=== PATIENT | female | born 1945 ===

== ENCOUNTER 2023-06-14 16:18 | Emergency (ER) | payer OTHER ==
--- OUTSIDE RECORDS SUMMARY | 2023-06-14 16:25 | XMS REPORT | Continuity of Care Document ---
:1945 Author Organization [facility] t Address [address] [facility] [address] [place] [address] Care Team Providers Name Role Phone None, None Primary Care Physician Unavailable KATE BARKER Attending Clinician Unavailable JAREN WONG Attending Clinician Unavailable Venancio MEDELLIN, Jaren Espinoza Attending Clinician Doctor Unassigned, [place] Attending Clinician Unavailable Shwetha Yeh MD Attending Clinician Mildred Rubio MA Attending Clinician Unavailable Chava Chapman Attending Clinician Jocelyn Randle MD Attending Clinician Provider, Unknown Attending Clinician Unavailable Jimmy MEDELLIN, Lynn Christianson Attending Clinician Cassidy Cote Attending Clinician Lupe Kay MA Attending Clinician Unavailable Aiyana Busch APRN Attending Clinician Nora Woods MD Attending Clinician KARINA Attending Clinician Unavailable Gladys Huntley Attending Clinician [phone] Farrah Carter MD Attending Clinician FARRAH CARTER Attending Clinician Unavailable NICCI Attending Clinician Unavailable Yaz Hi Attending Clinician [phone] Marco A Hernandez MD Attending Clinician MARCO A HERNANDEZ Attending Clinician Unavailable AIYANA BUSCH NP Attending Clinician Unavailable JAREN WONG Admitting Clinician Unavailable Jaren Wong MD Admitting Clinician JOCELYN RANDLE Admitting Clinician Unavailable MD SHWETHA YEH Admitting Clinician Unavailable WATERS_S Admitting Clinician Unavailable SCHAUBROECK_L Admitting Clinician Unavailable Payers Payer Name Policy Type Policy Number Effective Date Expiration Date Yumiko carlisle [employer] OPEN CHOICE [id number] 2021 PPO 00:00:00 [employer]ETNA MANAGED [id number] 2021 MEDICARE PPO-CYRUS 00:00:00 [employer]ET[employer] (MEDICARE [id number] 2021 REPLACEMENT PPO) 00:00:00 Problems Condition Condition Condition Status Onset Resolution Last Treating Co mments Source Name Details Category Date Date Treatment Clinician Date Lumbar Lumbar Disease Active Overview: Method i radiculopa radiculopa 3-[address] thy thy 00:00: g of this [facility] 00 note l might be different from the original. Added automatic ally from request for surgery [id number] Gastroesop Gastroesop Problem Active 2020-10 S [facility] hageal hageal 0-29 Communi reflux Reflux 00:00: ty disease Disease 00 Hospita Clinics Osteopenia Osteopenia Problem Active S [facility] 5-14 Communi 00:00: ty 00 [facility] Hyperlipid Hyperlipid Problem Active S [facility] emia emia 4-15 Communi 00:00: ty 00 Hospita Clinics Hypothyroi Hypothyroi Problem Active S [facility] dism dism 4-08 Communi 00:00: ty [facility] Insomnia Insomnia Problem Active [place] 4-08 Communi 00:00: ty 00 Hospita Clinics Asthma Asthma Problem Active [place] 4-08 Communi 00:00: ty 00 Hospita Clinics 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 History of History of Problem Resolve UT arthritis arthritis d Phys ici ans History of History of Problem Resolve UT asthma asthma d Physici ans History of History of Problem Resolve UT Exposure Exposure d Physic i of of ans implanted implanted vaginal vaginal mesh and mesh and other other prosthetic prosthetic materials materials into into vagina vagina History of History of Problem Resolve UT Mechanical Mechanical d Ph ysici complicati complicati an s on of on of genitourin genitourin rafa rafa device, device, implant implant and graft and graft History of History of Problem Resolve UT pneumonia pneumonia d Phys ici ans History of History of Problem Resolve UT Straining Straining d Phys ici on on ans urination urination Allergies, Adverse Reactions, Alerts Allergy Allergy Status Severity Reaction(s) Onset Inactive Treating Comm ents Source Name Type Date Date Clinician ASPIRIN DRUG Active Med Other-Cmnt Unive rs INGREDI 05-08 ity of 00:00: [address] Aspirin Drug Active Other - See Severe Univ ers Intolera comments 05-08 stomach ity o f nce 00:00: pain [address] Aspirin Propensi Active GI Methodi ty to Intolerance 04-17 st adverse 00:00: Hospita reaction 00 l s to drug Ibandron Allergy Active Other UT ic Acid to 2-17 reaction( Health substanc 00:00: s): e 00 Muscle Cramps Ibandron Propensi Active Other (See BONIVA Me thodi ic Acid ty to Comments) 2-[address] adverse 00:00: reaction( Hospit a reaction 00 s): l s to Muscle drug Cramps Aspirin Allergy Active Nausea Only Other UT to 5-05 reaction( Health substanc 00:00: s): e 00 Abdominal Pain, Vomiting ASPIRIN Allergy Active [place] to 5-05 Communi substanc 00:00: ty e 00 Hospita l Clinics NO KNOWN Drug Active Univers ALLERGIE Class ity of S [facility] Aspirin Allergy Active Severe, Abdominal Swee ny to Severe, pain, Communi substanc Severe Nausea, ty e Vomiting Hospita l Clinics IBANDRON Allergy Active Muscle [place] ATE to cramps Communi SODIUM substanc ty e Hospita l Clinics Family History Family Member Diagnosis Comments Start Date Stop Date Source Sister Family history of [facility] Phys icians Diabetes Sister Family history of [facility] Phys icians Renal failure Natural brother Blood Clots [facility] Social History Social Habit Start Date Stop Date Quantity Comments Source Exposure to Not sure [place] [facility] SARS-CoV-2 (event) History of tobacco Current smoker [facility] identity [facility] Sexual orientation [facility] Tobacco use and 2023-05-08 2023-05-08 Smokeless Universit y of exposure 00:00:00 00:00:00 tobacco non-user [facility] dical [place] Alcohol intake 2023-03-28 2023-03-28 Lifetime [facility] 00:00:00 00:00:00 non-drinker Hospital (finding) History of Social 2023-03-28 2023-03-[address] function 00:00:00 00:00:00 Hospital Cigarettes smoked 2023-01-02 2023-01-[address] current (pack per 00:00:00 00:00:00 Hospita l day) - Reported Cigarette 2023-01-02 2023-01-02 [facility] pack-years 00:00:00 00:00:00 Hospital Sex Ass[birth year] At [birth year] [facility] 00:00:00 00:00:00 Hospital Smoking Status Start Date Stop Date Source Tobacco smoking [place] [facility] consumption unknown Never smoked tobacco [facility] Ex-smoker 2023-01-02 00:00:00 2023-01-02 [facility]ital 00:00:00 Medications Ordered Filled Start Stop Current Ordering Indication Dosage Frequency Signature Comments Components Source Medication Medication Date Date Medication? Clinician (SIG) Name Name neomycin-po 2022- No PRN, Unive rs lymyxin-dex 05-15 Starting ity of amethasone 18:23: 18[place]29 [place] (MAXITROL[place] 00 :06 05/15/23 at Medi kieran 3.5 1323, Branch mg/g-10,000 Until Sat unit/g-0.1 05/15/23 at % 1329, ophthalmic Routine, ointment Intra-op sodium 2022- No PRN, Univers chloride 05-15 Starting ity of (NS) 18:21: 18:29 on Sat [place] injection 00 :06 05/15/23 at Medic al 1321, Branch Until Sat05/15/23 at 1329, Routine, Intra-op dexamethaso 2022- No PRN, Unive rs ne 05-15 Starting ity of (DECADRON 18:21: 18:29 on Wed [place] PHOSPHATE) 00 :06 05/15/23 at [facility] injection 1321, Branch Until Sat05/15/23 at 1329, Routine, Intra-op ceFAZolin 2022- No PRN, Univers (ANCEF) 05-15 Starting ity of injection 18:21: 18:29 on Wed [place] 00 :06 05/15/23 at Medical 1321, Branch Until Sat05/15/23 at 1329, RAFAEL, Intra-op carbachoL 2022- No PRN, Univers (MIOSTAT) 05-15 Starting ity o f 0.01 % 18:20: 18:29 on Sat [place] intraocular 00 :06 05/15/23 at Med ical injection 1320, Branch Until Sat05/15/23 at 1329, Routine, Intra-op EPINEPHrine 2022- No PRN, Unive rs 1:1,000 (1 05-15 Starting ity of mg/mL) 18:02: 18:29 on Wed [place] (ADRENALIN) 00 :06 05/15/23 at Med ical injection 1302, Branch Until 05/15/23 at 1329, Routine, Intra-op chondroitin 2022- No PRN, Unive rs sulf-sod 05-15 Starting ity of hyaluronate 18:02: 18:29 on Wed [place] (DUOVISC 00 :06 05/15/23 at Medica l VISCO 1302, Branch ELASTIC) Until Wed intraocular 05/15/23 at injection 1329, Routine, Intra-op balanced 2022- No PRN, Univers salt irrig 05-15 Starting ity of soln comb1 18:02: 18:29 [place] (BSS PLUS) 00 :06 05/15/23 at [facility] ophthalmic 1302, Branch solution Until Wed 500 mL bag 05/15/23 at 1329, Routine, Intra-op water for 2022- No PRN, Univers irrigation 05-15 Starting ity of irrigation 17:58: 18:29 [place] Sat [place] solution 00 :06 05/15/23 at Medica l 1258, Branch Until Sat05/15/23 at 1329, Routine, Intra-op Hyaluronida 2022- No PRN, Unive rs se, Human 05-15 Starting ity o f Recomb. 17:55: 18:29 on Sat [place] (HYLENEX) 00 :06 05/15/23 at Medic al injection 1255, Branch Until Sat05/15/23 at 1329, Routine, Intra-op eye block 2022- No PRN, Univers syringe 11 05-15 Starting ity of mL 17:55: 18:29 on Sat [place] 00 :06 05/15/23 at Medical 1255, Branch Until Sat05/15/23 at 1329, Intra-op cyclopent 2022- No .5mL 0.5 mL, Univ ers 1%-tropic 05-15 Right Eye, ity of 1%-phenyl 15:45: 15:55 ONCE, 1 [place] 2.5%-ketor 00 :00 dose, On Medic al 0.5% Sat05/15/23 Branch (MYDRIATIC at 1045, #5) Routine, ophthalmic DSU Pre-op solution syringe 0.5 mL lactated 2022- No 1000mL at 42 Unive rs ringers IV 05-15 mL/hr, ity of infusion 15:45: 15:55 1,000 mL, [place] 1,000 mL 00 :00 IV Medical Infusion, Branch ONCE, 1 dose, On Sat05/15/23 at 1045, Routine, DSU Pre-op cyclopent 2022- No .5mL 0.5 mL, Univ ers 1%-tropic 05-15 Right Eye, ity of 1%-phenyl 15:45: 15:55 ONCE, 1 [place] 2.5%-ketor 00 :00 dose, On Medic al 0.5% Sat05/15/23 Branch (MYDRIATIC at 1045, #5) Routine, ophthalmic DSU Pre-op solution syringe 0.5 mL lactated 2022- No 1000mL at 42 Unive rs ringers IV 8-02 08-02 mL/hr, ity of infusion 15:45: 15:55 1,000 mL, [place] 1,000 mL 00 :00 IV Medical Infusion, Branch ONCE, 1 dose, On Sat05/15/23 at 1045, Routine, DSU Pre-op rosuvastati 3-0 Yes 10mg Take 1 Univ ers n 10 mg 8-02 tablet by ity of tablet 14:02: mouth at [place] [id number] bedtime. Medical Branch gabapentin 2022-0 Yes 300mg Take 1 Univ ers 300 mg 8-02 capsule by ity of capsule 14:02: mouth [place] [address] every Medical evening. Branch rosuvastati 202-0 Yes 10mg Take 1 Univ ers n 10 mg 8-02 tablet by ity of tablet 14:02: mouth at [place] [address] bedtime. Medical Branch gabapentin 2022-0 Yes 300mg Take 1 Univ ers 300 mg 8-02 capsule by ity of capsule 14:02: mouth [place] [address] every Medical evening. Branch rosuvastati 2022-0 Yes 10mg Take 1 Univ ers n 10 mg 8-02 tablet by ity of tablet 14:02: mouth at [place] [address] bedtime. Medical Branch gabapentin 2022-0 Yes 300mg Take 1 Univ ers 300 mg 8-02 capsule by ity of capsule 14:02: mouth [place] [address] every Medical evening. Branch cholecalcif 2022-0 Yes QD daily. Meth len bertha, 6-[address] vitamin D3, 10:42: Hospit a 1,000 unit 04 l tablet fluticasone 2022-0 Yes 100ug QD 2 sprays M ethodi propionate 6-15 ([address] (FLONASE) 10:42: total) by Hos roman 50 04 Each Nare l mcg/actuati route on nasal daily. As spray needed multivitami 2022-0 Yes 1{tbl} QD Take 1 Me thodi n tablet 6-[address] 10:42: mouth Hospita 04 daily. l rosuvastati 2022-0 Yes Method i n (CRESTOR) 6-15 st 10 mg 00:00: Hospita tablet 00 l gabapentin 2022-0 2023- No 300mg Q.[id number] Take 1 Methodi (NEURONTIN) 02-19 08-[id number] 300 mg 00:00: 04:59 3D (300 mg Hospita capsule 00 :00 total) by l mouth 3 (three) times a day for 90 days. methylPREDN Yes follow Meth len ISolone [address] (MEDROL 00:00: directions Hosp tamar DOSEPAK) 4 00 l mg tablet methylPREDN 2022- No [id number] 4mg Take 1 Methodi ISolone 01-10 04-05 tablet (4 st (Medrol, 00:00: 04:59 mg total) Hos roman Jarrett,) 4 mg 00 :00 by mouth l tablet take as directed (Take as directed on pack) for up to 5 days. follow package directions NON 2022- No MANNATECH Methodi FORMULARY 01-[address] 12:16: 00:00 (ENDOCRINE Hospit a 08 :00 SYSTEM) l NON 2022- No HAIR Methodi FORMULARY 01-[address] 12:16: 00:00 Hospita 08 :00 l scopolamine 2022- No 1{patch Q72H Place 1 Methodi (Transderm- 01-0811 } patch on st Scop) 1 mg 00:00: 04:59 the skin Ho spita over 3 days 00 :00 every l third day for 5 doses. HYDROcodone 2022- [place] [id number] 2{tbl} Q6H Take 2 Methodi -acetaminop 01-08 04-08 tablets by yumiko malone ([place]) 00:00: 04:59 mouth Hosp tamar 5-325 mg 00 :00 every 6 l per tablet (six) hours as needed for moderate pain or severe pain for up to 10 days .acute pain. Max Daily Amount: 8 tablets methocarbam 2022-2022- No 500mg Q8H Take 1 Me thodi oL 01-06- tablet st (ROBAXIN) 00:00: 04:59 (500 mg Hosp tamar 500 MG 00 :00 total) by l tablet mouth every 8 (eight) hours as needed for muscle spasms for up to 30 days. HYDROcodone 2022-2022- [place] [id number] 1{tbl} Q6H Take 1 Methodi -acetaminop 3-26 03-[address] hen ([place]) 00:00: 00:00 mouth Hosp tamar 5-325 mg 00 :00 every 6 l per tablet (six) hours as needed for moderate pain or severe pain for up to 10 days .acute pain. Max Daily Amount: 4 tablets ferrous 2022- No Take by Method i sulfate 01-[address] (IRON ORAL) 10:10: 00:00 Hospi ta 01 :00 l nut.tx.comp 2022- No START Meth len . immune 01-0201/02/2023 st systm,reg 00:00: 00:00 ENDS Hospita (Impact 00 :00 01/03/2023. l Advanced 2 bottles Recovery) per day 0.1 for 5 days gram-1.12 prior to kcal/mL surgery liquid famotidine Yes 20mg Q.5D Take 1 Metho di (PEPCID) 20 -24 tablet (20 st MG tablet 00:00: mg total) Hos roman 00 by mouth 2 l (two) times a day. methylPREDN 2021-10- No [id number] follow Methodi ISolone 0-04 10-[address] (Medrol, 00:00: 04:59 directions Ho margie Dailey,) 4 mg 00 :00 l tablet gabapentin Yes 300mg QD Take 1 Meth len (NEURONTIN) 6-[address] 300 mg 00:00: (300 mg Hospita capsule 00 total) by l mouth nightly. montelukast 0 Yes 10mg QD Take 1 Meth len (SINGULAIR) 6-10 tablet (10 st 10 mg 00:00: mg total) Hospita tablet 00 by mouth l daily. docusate 2021-0 Yes [id number] 100mg Q.5D Take 1 U T sodium 4-25 capsule Health (Colace) 00:00: (100 mg 100 MG 00 total) by capsule mouth 2 (two) times a day. docusate 2021-0 Yes [id number] 100mg Q.5D Take 1 U T sodium 4-25 capsule Health (Colace) 00:00: (100 mg 100 MG 00 total) by capsule mouth 2 (two) times a day. docusate 2021-0 Yes [id number] 100mg Q.5D Take 1 U T sodium 4-25 capsule Health (Colace) 00:00: (100 mg 100 MG 00 total) by capsule mouth 2 (two) times a day. ibuprofen 2022- No TAKE ONE Met amalia (ADVIL) 600 4-25 01-02 (1) TABLET s t MG tablet 00:00: 00:00 (600 MG Hosp tamar 00 :00 TOTAL) BY l MOUTH EVERY 6 (SIX) HOURS IF NEEDED FOR MILD PAIN FOR UP TO 7 DAYS. pantoprazol 2022- No Take by Me valencia e 01-[address] (PROTONIX) 00:00: 00:00 Hospit a 40 MG EC 00 :00 l tablet Magnesium Yes UT 300 MG 2-17 Health capsule 14:31: 53 Multiple 0 Yes UT Vitamins-Mi 2-17 Health nerals 14:31: (Hair 53 Vitamins) tablet pantoprazol 0 Yes if needed. UT e 2-17 Health (ProtoNix) 14:31: 40 MG EC 53 tablet Bacillus 0 Yes USE UT Coagulans-I 2-17 DIRECTED. [facility] nulin 14:31: (Probiotic) 53 1-250 BILLION-MG capsule cholecalcif 0 Yes UT bertha 2-17 Health (Vitamin 14:31: D3) 25 MCG 53 (1000 UT) tablet Magnesium 0 Yes UT 300 MG 2-17 Health capsule 14:31: 53 Multiple 0 Yes UT Vitamins-Mi 2-17 Health nerals 14:31: (Hair 53 Vitamins) tablet pantoprazol 2021-0 Yes if needed. UT e 2-17 Health (ProtoNix) 14:31: 40 MG EC 53 tablet Bacillus 0 Yes USE UT Coagulans-I 2-17 DIRECTED. [facility] nulin 14:31: (Probiotic) 53 1-250 BILLION-MG capsule cholecalcif 0 Yes UT bertha 2-17 Health (Vitamin 14:31: D3) 25 MCG 53 (1000 UT) tablet Magnesium 0 Yes UT 300 MG 2-17 Health capsule 14:31: 53 Multiple 0 Yes UT Vitamins-Mi 2-17 Health nerals 14:31: (Hair 53 Vitamins) tablet pantoprazol 2022-0 Yes if needed. UT e 2-17 Health (ProtoNix) 14:31: 40 MG EC 53 tablet Bacillus 2021-0 Yes USE UT Coagulans-I 2-17 DIRECTED. [facility] 14:31: (Probiotic) 53 1-250 BILLION-MG capsule cholecalcif 2021-0 Yes UT bertha 2-17 Health (Vitamin 14:31: D3) 25 MCG 53 (1000 UT) tablet Magnesium 2-0 Yes UT 300 MG 2-17 Health capsule 14:31: 53 Multiple 2021-0 Yes UT Vitamins-Mi 2-17 Health nerals 14:31: (Hair 53 Vitamins) tablet pantoprazol 2021-0 Yes if needed. UT e 2-17 Health (ProtoNix) 14:31: 40 MG EC 53 tablet Bacillus 2021-0 Yes USE UT Coagulans-I 2-17 DIRECTED. [facility] 14:31: (Probiotic) 53 1-250 BILLION-MG capsule cholecalcif 2021-0 Yes UT bertha 2-17 Health (Vitamin 14:31: D3) 25 MCG 53 (1000 UT) tablet Magnesium 2021-0 Yes UT 300 MG 2-17 Health capsule 14:31: 53 Multiple 2021-0 Yes UT Vitamins-Mi 2-17 Health nerals 14:31: (Hair 53 Vitamins) tablet pantoprazol 2021-0 Yes if needed. UT e 2-17 Health (ProtoNix) 14:31: 40 MG EC 53 tablet Bacillus 2021-0 Yes USE UT Coagulans-I 2-17 DIRECTED. [facility] 14:31: (Probiotic) 53 1-250 BILLION-MG capsule cholecalcif 2021-0 Yes UT bertha 2-17 Health (Vitamin 14:31: D3) 25 MCG 53 (1000 UT) tablet methylPREDN 2022-0 Yes [id number] 84mg Take 21 Univers ISolone 2-04 9109 tablets by ity of (MEDROL, 00:00: mouth [place] JARRETT,) 4 mg 00 SEE-INSTRU Med ical tablets CTIONS. Branch follow package directions methylPREDN 2022-0 Yes [id number] 84mg Take 21 Univers ISolone 2-04 9109 tablets by ity of (MEDROL, 00:00: mouth [place] JARRETT,) 4 mg 00 SEE-INSTRU Med ical tablets CTIONS. Branch follow package directions methylPREDN 2022-0 Yes [id number] 84mg Take 21 Univers ISolone 2-04 9109 tablets by ity of (MEDROL, 00:00: mouth [place] JARRETT,) 4 mg 00 SEE-INSTRU Med ical tablets CTIONS. Branch follow package directions methylPREDN 2022-0 Yes [id number] 84mg Take 21 Univers ISolone 2-04 9109 tablets by ity of (MEDROL, 00:00: mouth [place] JARRETT,) 4 mg 00 SEE-INSTRU Med ical tablets CTIONS. Branch follow package directions methylPREDN 2022-0 Yes [id number] 84mg Take 21 Univers ISolone 2-04 9109 tablets by ity of (MEDROL, 00:00: mouth [place] JARRETT,) 4 mg 00 SEE-INSTRU Med ical tablets CTIONS. Branch follow package directions methylPREDN 2022-0 Yes [id number] 84mg Take 21 Univers ISolone 2-04 9109 tablets by ity of (MEDROL, 00:00: mouth [place] JARRETT,) 4 mg 00 SEE-INSTRU Med ical tablets CTIONS. Branch follow package directions famotidine 2022-0 Yes 20mg Take 20 mg U T (Pepcid) 20 1-27 by mouth. Hea lth MG tablet 00:00: 00 famotidine 2022-0 Yes 20mg Take 20 mg U T (Pepcid) 20 1-27 by mouth. Hea lth MG tablet 00:00: 00 famotidine 2022-0 Yes 20mg Take 20 mg U T (Pepcid) 20 1-27 by mouth. Hea lth MG tablet 00:00: 00 famotidine 2022-0 Yes 20mg Take 20 mg U T (Pepcid) 20 1-27 by mouth. Hea lth MG tablet 00:00: 00 famotidine 2022-0 Yes 20mg Take 20 mg U T (Pepcid) 20 1-27 by mouth. Hea lth MG tablet 00:00: 00 famotidine 2022-0 Yes 20mg Take 1 Unive rs 20 mg 1-27 tablet by ity of tablet 00:00: mouth in [place] 00 the Medical morning Branch and 1 tablet in the evening. famotidine 2022-0 Yes 20mg Take 1 Unive rs 20 mg 1-27 tablet by ity of tablet 00:00: mouth in [place] 00 the Medical morning Branch and 1 tablet in the evening. famotidine 2-0 Yes 20mg Take 20 mg U nivers 20 mg 1-27 by mouth 2 ity of tablet 00:00: (two) [place] 00 times Medical daily. Branch famotidine 2022-0 Yes 20mg Take 20 mg U nivers 20 mg 1-27 by mouth 2 ity of tablet 00:00: (two) [place] 00 times Medical daily. Branch famotidine 2022-0 Yes 20mg Take 20 mg U nivers 20 mg 1-27 by mouth 2 ity of tablet 00:00: (two) [place] 00 times Medical daily. Branch famotidine 2-0 Yes 20mg Take 1 Unive rs 20 mg 1-27 tablet by ity of tablet 00:00: mouth in [place] 00 the Medical morning Branch and 1 tablet in the evening. budesonide- Yes INHALE TWO UT formoterol 1-25 (2) Health (Symbicort) 00:00: PUFF(S) BY 160-4.5 00 MOUTH MCG/ACT TWICE inhaler DAILY FOR ASTHMA OR COPD PREVENTION . estrogens, Yes INSERT UT conjugated, 1-25 ONE-FOURTH He alth (Premarin) 00:00: (10/17) vaginal 00 APPLICATOR cream FUL INTO VAGINA ONCE A WEEK. budesonide- 0 Yes INHALE TWO UT formoterol 1-25 (2) Health (Symbicort) 00:00: PUFF(S) BY 160-4.5 00 MOUTH MCG/ACT TWICE inhaler DAILY FOR ASTHMA OR COPD PREVENTION . estrogens, 0 Yes INSERT UT conjugated, 1-25 ONE-FOURTH He alth (Premarin) 00:00: (10/17) vaginal 00 APPLICATOR cream FUL INTO VAGINA ONCE A WEEK. budesonide- 0 Yes INHALE TWO UT formoterol 1-25 (2) Health (Symbicort) 00:00: PUFF(S) BY 160-4.5 00 MOUTH MCG/ACT TWICE inhaler DAILY FOR ASTHMA OR COPD PREVENTION . estrogens, 2021-0 Yes INSERT UT conjugated, 1-25 ONE-FOURTH He alth (Premarin) 00:00: (10/17) vaginal 00 APPLICATOR cream FUL INTO VAGINA ONCE A WEEK. budesonide- Yes INHALE TWO UT formoterol 1-25 (2) Health (Symbicort) 00:00: PUFF(S) BY 160-4.5 00 MOUTH MCG/ACT TWICE inhaler DAILY FOR ASTHMA OR COPD PREVENTION . estrogens, Yes INSERT UT conjugated, 1-25 ONE-FOURTH He alth (Premarin) 00:00: (10/17) vaginal 00 APPLICATOR cream FUL INTO VAGINA ONCE A WEEK. budesonide- Yes INHALE TWO UT formoterol 1-25 (2) Health (Symbicort) 00:00: PUFF(S) BY 160-4.5 00 MOUTH MCG/ACT TWICE inhaler DAILY FOR ASTHMA OR COPD PREVENTION . estrogens, Yes INSERT UT conjugated, 1-25 ONE-FOURTH He alth (Premarin) 00:00: (10/17) vaginal 00 APPLICATOR cream FUL INTO VAGINA ONCE A WEEK. SYMBICORT Yes INHALE TWO Un zenaida 160-4.5 1-25 (2) ity of mcg/actuati 00:00: PUFF(S) BY [place] on inhaler 00 MOUTH Medical TWICE Branch DAILY FOR ASTHMA OR COPD PREVENTION . PREMARIN Yes INSERT Univers 0.625 1-25 ONE-FOURTH ity of mg/gram 00:00: (10/17) [place] cream 00 APPLICATOR Medical FUL INTO Branch VAGINA ONCE A WEEK. SYMBICORT Yes INHALE TWO Un zenaida 160-4.5 1-25 (2) ity of mcg/actuati 00:00: PUFF(S) BY [place] on inhaler 00 MOUTH Medical TWICE Branch DAILY FOR ASTHMA OR COPD PREVENTION . PREMARIN Yes INSERT Univers 0.625 1-25 ONE-FOURTH ity of mg/gram 00:00: (10/17) [place] cream 00 APPLICATOR Medical FUL INTO Branch VAGINA ONCE A WEEK. SYMBICORT Yes INHALE TWO Un zenaida 160-4.5 1-25 (2) ity of mcg/actuati 00:00: PUFF(S) BY [place] on inhaler 00 MOUTH Medical TWICE Branch DAILY FOR ASTHMA OR COPD PREVENTION . PREMARIN Yes INSERT Univers 0.625 1-25 ONE-FOURTH ity of mg/gram 00:00: (10/17) [place] cream 00 APPLICATOR Medical FUL INTO Branch VAGINA ONCE A WEEK. SYMBICORT 2021-0 Yes INHALE TWO Un zenaida 160-4.5 1-25 (2) ity of mcg/actuati 00:00: PUFF(S) BY [place] on inhaler 00 MOUTH Medical TWICE Branch DAILY FOR ASTHMA OR COPD PREVENTION . PREMARIN 2021-0 Yes INSERT Univers 0.625 1-25 ONE-FOURTH ity of mg/gram 00:00: (10/17) [place] cream 00 APPLICATOR Medical FUL INTO Branch VAGINA ONCE A WEEK. SYMBICORT 2021-0 Yes INHALE TWO Un zenaida 160-4.5 1-25 (2) ity of mcg/actuati 00:00: PUFF(S) BY [place] on inhaler 00 MOUTH Medical TWICE Branch DAILY FOR ASTHMA OR COPD PREVENTION . PREMARIN 2021-0 Yes INSERT Univers 0.625 1-25 ONE-FOURTH ity of mg/gram 00:00: (10/17) [place] cream 00 APPLICATOR Medical FUL INTO Branch VAGINA ONCE A WEEK. SYMBICORT 2021-0 Yes INHALE TWO Un zenaida 160-4.5 1-25 (2) ity of mcg/actuati 00:00: PUFF(S) BY [place] on inhaler 00 MOUTH Medical TWICE Branch DAILY FOR ASTHMA OR COPD PREVENTION . PREMARIN 2021-0 Yes INSERT Univers 0.625 1-25 ONE-FOURTH ity of mg/gram 00:00: (10/17) [place] cream 00 APPLICATOR Medical FUL INTO Branch VAGINA ONCE A WEEK. budesonide- 0 Yes As needed M ethodi formoteroL 1-25 st (SYMBICORT) 00:00: Hospit a 160-4.5 00 l mcg/actuati on inhaler levothyroxi 0 Yes 1{tbl} Take 1 UT ne 1-08 tablet by Health (Synthroid, 00:00: mouth 1 Levoxyl) 75 00 (one) time MCG tablet each day before breakfast. montelukast 2021-0 Yes 10mg Take 10 mg UT (Singulair) 1-08 by mouth. Hea lth 10 MG 00:00: tablet 00 levothyroxi 2021-0 Yes 1{tbl} Take 1 UT ne 1-08 tablet by Health (Synthroid, 00:00: mouth 1 Levoxyl) 75 00 (one) time MCG tablet each day before breakfast. montelukast 2022-0 Yes 10mg Take 10 mg UT (Singulair) 1-08 by mouth. Hea lth 10 MG 00:00: tablet 00 levothyroxi 2021-0 Yes 1{tbl} Take 1 UT ne 1-08 tablet by Health (Synthroid, 00:00: mouth 1 Levoxyl) 75 00 (one) time MCG tablet each day before breakfast. montelukast 2-0 Yes 10mg Take 10 mg UT (Singulair) 1-08 by mouth. Hea lth 10 MG 00:00: tablet 00 levothyroxi 2021-0 Yes 1{tbl} Take 1 UT ne 1-08 tablet by [facility] (Synthroid, 00:00: mouth 1 Levoxyl) 75 00 (one) time MCG tablet each day before breakfast. montelukast 2021-0 Yes 10mg Take 10 mg [facility] (Singulair) 1-08 by mouth. [facility] 10 MG 00:00: tablet 00 levothyroxi 2021-0 Yes 1{tbl} Take 1 UT ne 1-08 tablet [facility] (Synthroid, 00:00: mouth 1 Levoxyl) 75 00 (one) time MCG tablet each day before breakfast. montelukast 2021-0 Yes 10mg Take 10 mg [facility] (Singulair) 1-08 by mouth. [facility] 10 MG 00:00: tablet 00 levothyroxi 2021-0 Yes TAKE ONE [facility] [place] [facility] 75 mcg 1-08 (1) ity of tablet 00:00: TABLET(S) BY MOUTH Medical EVERY Branch MORNING ON AN EMPTY STOMACH. montelukast 2021-0 Yes 10mg Take 1 [facility] 10 mg 1-08 tablet by ity of tablet 00:00: mouth in [place] 00 the Medical morning. Branch levothyroxi 2021-0 Yes TAKE ONE Un [place] ne 75 mcg 1-08 (1) ity of tablet 00:00: TABLET(S) BY MOUTH Medical EVERY Branch MORNING ON AN EMPTY STOMACH. montelukast 2-0 Yes 10mg Take 1 [facility] 10 mg 1-08 tablet by ity of tablet 00:00: mouth in [place] 00 the Medical morning. Branch levothyroxi 0 Yes TAKE ONE Un [place] ne 75 mcg 1-08 (1) ity of tablet 00:00: TABLET(S) BY MOUTH Medical EVERY Branch MORNING ON AN EMPTY STOMACH. montelukast 0 Yes 10mg Take 10 mg [facility] 10 mg 1-08 by mouth ity of tablet 00:00: daily. [place] [facility] levothyroxi Yes TAKE ONE Un [place] ne 75 mcg 1-08 (1) ity of tablet 00:00: TABLET(S) BY MOUTH Medical EVERY Branch MORNING ON AN EMPTY STOMACH. montelukast 2021-0 Yes 10mg Take 10 mg [facility] 10 mg 1-08 by mouth ity of tablet 00:00: daily. [place] [facility] levothyroxi Yes TAKE ONE Un [place] ne 75 mcg 1-08 (1) ity of tablet 00:00: TABLET(S) BY MOUTH Medical EVERY Branch MORNING ON AN EMPTY STOMACH. montelukast 2021-0 Yes 10mg Take 10 mg [facility] 10 mg 1-08 by mouth ity of tablet 00:00: daily. [address] levothyroxi Yes TAKE ONE Un [place] ne 75 mcg 1-08 (1) ity of tablet 00:00: TABLET(S) BY MOUTH Medical EVERY [place] MORNING ON AN EMPTY STOMACH. montelukast 0 Yes 10mg Take 1 [facility] ers 10 mg 1-08 tablet by ity of tablet 00:00: mouth in [place] [id number] the Medical morning. Branch levothyroxi Yes 75ug Take 1 Meth len ne 1-08 tablet (75 st (SYNTHROID) 00:00: mcg total) [facility]osp[facility] 75 mcg 00 by mouth. l tablet albuterol Yes INHALE TWO UT 108 (90 2-24 (2) [facility]) 00:00: PUFF(S) BY MCG/ACT 00 MOUTH 4 TO inhaler 6 TIMES A DAY FOR ASTHMA OR COPD. albuterol Yes INHALE TWO UT 108 (90 2-24 (2) [facility]) 00:00: PUFF(S) BY MCG/ACT 00 MOUTH 4 TO inhaler 6 TIMES A DAY FOR ASTHMA OR COPD. albuterol Yes INHALE TWO UT 108 (90 2-24 (2) [facility]) 00:00: PUFF(S) BY MCG/ACT 00 MOUTH 4 TO inhaler 6 TIMES A DAY FOR ASTHMA OR COPD. albuterol Yes INHALE TWO UT 108 (90 2-24 (2) [facility]) 00:00: PUFF(S) BY MCG/ACT 00 MOUTH 4 TO inhaler 6 TIMES A DAY FOR ASTHMA OR COPD. albuterol Yes INHALE TWO UT 108 (90 2-24 (2) [facility]) 00:00: PUFF(S) BY MCG/ACT 00 MOUTH 4 TO inhaler 6 TIMES A DAY FOR ASTHMA OR COPD. albuterol Yes INHALE TWO Me thodi (PROAIR 2-24 (2) st HFA) 90 00:00: PUFF(S) BY Hosp tamar mcg/actuati 00 MOUTH 4 TO l on inhaler 6 TIMES A DAY FOR ASTHMA OR COPD. Amitriptyli Amitriptyli Yes 50 mg, 1/2 UT ne HCl TABS ne HCl TABS po qHS [facility] ans Singulair Singulair Yes 1 QD TAKE 1 UT 10 MG Oral 10 MG Oral TABLET P hysici Tablet Tablet DAILY. ans Symbicort Symbicort Yes USE UT AERO AERO DIRECTED. Physici ans Synthroid Synthroid Yes 75 MCG QD UT TABS TABS [facility] ans Ventolin 90 Ventolin 90 Yes INHALE 1 UT MCG/ACT MCG/ACT TO 2 PUFFS Phy sici AERS AERS EVERY 4 TO ans 6 HOURS NEEDED AND DIRECTED. Probiotic Probiotic Yes USE UT CAPS CAPS DIRECTED. Physici ans albuterol albuterol No albuterol [place] sulfate HFA sulfate HFA sulfate Communi 90 90 HFA 90 ty mcg/actuati mcg/actuati mcg/actuat Hospita on aerosol on aerosol ion l inhaler inhaler aerosol Clinic s INHALE TWO INHALE TWO inhaler (2) PUFF(S) (2) PUFF(S) INHALE TWO BY MOUTH 4 BY MOUTH 4 (2) TO 6 TIMES TO 6 TIMES PUFF(S) BY A DAY FOR A DAY FOR MOUTH 4 TO ASTHMA OR ASTHMA OR 6 TIMES A COPD. COPD. DAY FOR ASTHMA OR COPD. amitriptyli amitriptyli No amitriptyl [place] ne 50 mg ne 50 mg ine 50 mg [facility] tablet TAKE tablet TAKE tablet ty ONE (1) ONE (1) TAKE ONE Hospi ta TABLET(S) TABLET(S) (1) l BY MOUTH AT BY MOUTH AT TABLET(S) Clinics BEDTIME. BEDTIME. BY MOUTH AT BEDTIME. levothyroxi levothyroxi No levothyrox [place] ne 75 mcg ne 75 mcg ine 75 mcg Communi tablet TAKE tablet TAKE tablet ty ONE (1) ONE (1) TAKE ONE Hospi ta TABLET(S) TABLET(S) (1) l BY MOUTH BY MOUTH TABLET(S) Cl inics EVERY EVERY BY MOUTH MORNING ON MORNING ON EVERY AN EMPTY AN EMPTY MORNING ON STOMACH. STOMACH. AN EMPTY STOMACH. montelukast montelukast No montelukas [place] 10 mg 10 mg t 10 mg Communi tablet TAKE tablet TAKE tablet ty ONE (1) ONE (1) TAKE ONE Hospi ta TABLET(S) TABLET(S) (1) l BY MOUTH BY MOUTH TABLET(S) Cl inics ONCE A DAY. ONCE A DAY. BY MOUTH ONCE A DAY. pantoprazol pantoprazol No pantoprazo [place] e 40 mg e 40 mg le 40 mg [facility] ni tablet,ernestine tablet,ernestine tablet,del ty yed release yed release ayed H ospita TAKE ONE TAKE ONE release l (1) (1) TAKE ONE Clinics TABLET(S) TABLET(S) (1) BY MOUTH BY MOUTH TABLET(S) ONCE A DAY ONCE A DAY BY MOUTH ONE HOUR ONE HOUR ONCE A DAY BEFORE FOOD BEFORE FOOD ONE HOUR IN THE IN THE BEFORE MORNING. MORNING. FOOD IN THE MORNING. Premarin Premarin No Premarin Swe jany 0.625 0.625 0.625 Communi mg/gram mg/gram mg/gram ty vaginal vaginal vaginal Hospit a cream USE cream USE cream USE l DIRECTED DIRECTED C linics 10/17 10/17 DIRECTED APPICATORFU APPICATORFU 10/17 L ONCE A L ONCE A APPICATORF WEEK. WEEK. UL ONCE A WEEK. Symbicort Symbicort No Symbicort [place] 160 mcg-4.5 160 mcg-4.5 160 [facility] mcg/actuati mcg/actuati mcg-4.5 ty on HFA on HFA mcg/actuat Hospi ta aerosol aerosol ion HFA l inhaler inhaler aerosol Clinic s INHALE TWO INHALE TWO inhaler (2) PUFF(S) (2) PUFF(S) INHALE TWO BY MOUTH BY MOUTH (2) TWICE DAILY TWICE DAILY PUFF(S) BY FOR ASTHMA FOR ASTHMA MOUTH OR COPD OR COPD TWICE PREVENTION. PREVENTION. DAILY FOR ASTHMA OR COPD PREVENTION . albuterol albuterol No albuterol [place] sulfate HFA sulfate HFA sulfate Communi 90 90 HFA 90 ty mcg/actuati mcg/actuati mcg/actuat Hospita on aerosol on aerosol ion l inhaler inhaler aerosol Clinic s INHALE TWO INHALE TWO inhaler (2) PUFF(S) (2) PUFF(S) INHALE TWO BY MOUTH 4 BY MOUTH 4 (2) TO 6 TIMES TO 6 TIMES PUFF(S) BY A DAY FOR A DAY FOR MOUTH 4 TO ASTHMA OR ASTHMA OR 6 TIMES A COPD. COPD. DAY FOR ASTHMA OR COPD. amitriptyli amitriptyli No amitriptyl [place] ne 50 mg ne 50 mg ine 50 mg [facility] tablet TAKE tablet TAKE tablet ty ONE (1) ONE (1) TAKE ONE Hospi ta TABLET(S) TABLET(S) (1) l BY MOUTH AT BY MOUTH AT TABLET(S) Clinics BEDTIME. BEDTIME. BY MOUTH AT BEDTIME. levothyroxi levothyroxi No levothyrox [place] ne 75 mcg ne 75 mcg ine 75 mcg Communi tablet TAKE tablet TAKE tablet ty ONE (1) ONE (1) TAKE ONE Hospi ta TABLET(S) TABLET(S) (1) l BY MOUTH BY MOUTH TABLET(S) Cl inics EVERY EVERY BY MOUTH MORNING ON MORNING ON EVERY AN EMPTY AN EMPTY MORNING ON STOMACH. STOMACH. AN EMPTY STOMACH. montelukast montelukast No montelukas [place] 10 mg 10 mg t 10 mg Communi tablet TAKE tablet TAKE tablet ty ONE (1) ONE (1) TAKE ONE Hospi ta TABLET(S) TABLET(S) (1) l BY MOUTH BY MOUTH TABLET(S) Cl inics ONCE A DAY. ONCE A DAY. BY MOUTH ONCE A DAY. pantoprazol pantoprazol No pantoprazo [place] e 40 mg e 40 mg le 40 mg [facility] tablet,ernestine tablet,ernestine tablet,del ty yed release yed release ayed H ospita TAKE ONE TAKE ONE release l (1) (1) TAKE ONE Clinics TABLET(S) TABLET(S) (1) BY MOUTH BY MOUTH TABLET(S) ONCE A DAY ONCE A DAY BY MOUTH ONE HOUR ONE HOUR ONCE A DAY BEFORE FOOD BEFORE FOOD ONE HOUR IN THE IN THE BEFORE MORNING. MORNING. FOOD IN THE MORNING. Premarin Premarin No Premarin Swe jany 0.625 0.625 0.625 Communi mg/gram mg/gram mg/gram ty vaginal vaginal vaginal Hospit a cream USE cream USE cream USE l DIRECTED DIRECTED C linics 10/17 10/17 DIRECTED APPICATORFU APPICATORFU 10/17 L ONCE A L ONCE A APPICATORF WEEK. WEEK. UL ONCE A WEEK. Symbicort Symbicort No Symbicort [place] 160 mcg-4.5 160 mcg-4.5 160 [facility] mcg/actuati mcg/actuati mcg-4.5 ty on HFA on HFA mcg/actuat Hospi ta aerosol aerosol ion HFA l inhaler inhaler aerosol Clinic s INHALE TWO INHALE TWO inhaler (2) PUFF(S) (2) PUFF(S) INHALE TWO BY MOUTH BY MOUTH (2) TWICE DAILY TWICE DAILY PUFF(S) BY FOR ASTHMA FOR ASTHMA MOUTH OR COPD OR COPD TWICE PREVENTION. PREVENTION. DAILY FOR ASTHMA OR COPD PREVENTION . albuterol albuterol No albuterol [place] sulfate HFA sulfate HFA sulfate Communi 90 90 HFA 90 ty mcg/actuati mcg/actuati mcg/actuat Hospita on aerosol on aerosol ion l inhaler inhaler aerosol Clinic s INHALE TWO INHALE TWO inhaler (2) PUFF(S) (2) PUFF(S) INHALE TWO BY MOUTH 4 BY MOUTH 4 (2) TO 6 TIMES TO 6 TIMES PUFF(S) BY A DAY FOR A DAY FOR MOUTH 4 TO ASTHMA OR ASTHMA OR 6 TIMES A COPD. COPD. DAY FOR ASTHMA OR COPD. amitriptyli amitriptyli No amitriptyl [place] ne 50 mg ne 50 mg ine 50 mg [facility] tablet TAKE tablet TAKE tablet ty ONE (1) ONE (1) TAKE ONE Hospi ta TABLET(S) TABLET(S) (1) l BY MOUTH AT BY MOUTH AT TABLET(S) Clinics BEDTIME. BEDTIME. BY MOUTH AT BEDTIME. levothyroxi levothyroxi No levothyrox [place] ne 75 mcg ne 75 mcg ine 75 mcg Communi tablet TAKE tablet TAKE tablet ty ONE (1) ONE (1) TAKE ONE Hospi ta TABLET(S) TABLET(S) (1) l BY MOUTH BY MOUTH TABLET(S) Cl inics EVERY EVERY BY MOUTH MORNING ON MORNING ON EVERY AN EMPTY AN EMPTY MORNING ON STOMACH. STOMACH. AN EMPTY STOMACH. montelukast montelukast No montelukas [place] 10 mg 10 mg t 10 mg Communi tablet TAKE tablet TAKE tablet ty ONE (1) ONE (1) TAKE ONE Hospi ta TABLET(S) TABLET(S) (1) l BY MOUTH BY MOUTH TABLET(S) Cl inics ONCE A DAY. ONCE A DAY. BY MOUTH ONCE A DAY. pantoprazol pantoprazol No pantoprazo [place] e 40 mg e 40 mg le 40 mg [facility] tablet,ernestine tablet,ernestine tablet,del ty yed release yed release ayed H ospita TAKE ONE TAKE ONE release l (1) (1) TAKE ONE Clinics TABLET(S) TABLET(S) (1) BY MOUTH BY MOUTH TABLET(S) ONCE A DAY ONCE A DAY BY MOUTH ONE HOUR ONE HOUR ONCE A DAY BEFORE FOOD BEFORE FOOD ONE HOUR IN THE IN THE BEFORE MORNING. MORNING. FOOD IN THE MORNING. Premarin Premarin No Premarin Swe jany 0.625 0.625 0.625 Communi mg/gram mg/gram mg/gram ty vaginal vaginal vaginal Hospit a cream USE cream USE cream USE l DIRECTED DIRECTED C linics 10/17 10/17 DIRECTED APPICATORFU APPICATORFU 10/17 L ONCE A L ONCE A APPICATORF WEEK. WEEK. UL ONCE A WEEK. Symbicort Symbicort No Symbicort [place] 160 mcg-4.5 160 mcg-4.5 160 [facility] mcg/actuati mcg/actuati mcg-4.5 ty on HFA on HFA mcg/actuat Hospi ta aerosol aerosol ion HFA l inhaler inhaler aerosol Clinic s INHALE TWO INHALE TWO inhaler (2) PUFF(S) (2) PUFF(S) INHALE TWO BY MOUTH BY MOUTH (2) TWICE DAILY TWICE DAILY PUFF(S) BY FOR ASTHMA FOR ASTHMA MOUTH OR COPD OR COPD TWICE PREVENTION. PREVENTION. DAILY FOR ASTHMA OR COPD PREVENTION . albuterol albuterol No albuterol [place] sulfate HFA sulfate HFA sulfate Communi 90 90 HFA 90 ty mcg/actuati mcg/actuati mcg/actuat Hospita on aerosol on aerosol ion l inhaler inhaler aerosol Clinic s INHALE TWO INHALE TWO inhaler (2) PUFF(S) (2) PUFF(S) INHALE TWO BY MOUTH 4 BY MOUTH 4 (2) TO 6 TIMES TO 6 TIMES PUFF(S) BY A DAY FOR A DAY FOR MOUTH 4 TO ASTHMA OR ASTHMA OR 6 TIMES A COPD. COPD. DAY FOR ASTHMA OR COPD. amitriptyli amitriptyli No amitriptyl [place] ne 50 mg ne 50 mg ine 50 mg [facility] tablet TAKE tablet TAKE tablet ty ONE (1) ONE (1) TAKE ONE Hospi ta TABLET(S) TABLET(S) (1) l BY MOUTH AT BY MOUTH AT TABLET(S) Clinics BEDTIME. BEDTIME. BY MOUTH AT BEDTIME. levothyroxi levothyroxi No levothyrox [place] ne 75 mcg ne 75 mcg ine 75 mcg Communi tablet TAKE tablet TAKE tablet ty ONE (1) ONE (1) TAKE ONE Hospi ta TABLET(S) TABLET(S) (1) l BY MOUTH BY MOUTH TABLET(S) Cl inics EVERY EVERY BY MOUTH MORNING ON MORNING ON EVERY AN EMPTY AN EMPTY MORNING ON STOMACH. STOMACH. AN EMPTY STOMACH. montelukast montelukast No montelukas [place] 10 mg 10 mg t 10 mg Communi tablet TAKE tablet TAKE tablet ty ONE (1) ONE (1) TAKE ONE Hospi ta TABLET(S) TABLET(S) (1) l BY MOUTH BY MOUTH TABLET(S) Cl inics ONCE A DAY. ONCE A DAY. BY MOUTH ONCE A DAY. pantoprazol pantoprazol No pantoprazo [place] e 40 mg e 40 mg le 40 mg [facility] tablet,ernestine tablet,ernestine tablet,del ty yed release yed release ayed H ospita TAKE ONE TAKE ONE release l (1) (1) TAKE ONE Clinics TABLET(S) TABLET(S) (1) BY MOUTH BY MOUTH TABLET(S) ONCE A DAY ONCE A DAY BY MOUTH ONE HOUR ONE HOUR ONCE A DAY BEFORE FOOD BEFORE FOOD ONE HOUR IN THE IN THE BEFORE MORNING. MORNING. FOOD IN THE MORNING. Premarin Premarin No Premarin Swe jany 0.625 0.625 0.625 Communi mg/gram mg/gram mg/gram ty vaginal vaginal vaginal Hospit a cream USE cream USE cream USE l DIRECTED DIRECTED C linics 10/17 10/17 DIRECTED APPICATORFU APPICATORFU 10/17 L ONCE A L ONCE A APPICATORF WEEK. WEEK. UL ONCE A WEEK. Symbicort Symbicort No Symbicort [place] 160 mcg-4.5 160 mcg-4.5 160 [facility] mcg/actuati mcg/actuati mcg-4.5 ty on HFA on HFA mcg/actuat Hospi ta aerosol aerosol ion HFA l inhaler inhaler aerosol Clinic s INHALE TWO INHALE TWO inhaler (2) PUFF(S) (2) PUFF(S) INHALE TWO BY MOUTH BY MOUTH (2) TWICE DAILY TWICE DAILY PUFF(S) BY FOR ASTHMA FOR ASTHMA MOUTH OR COPD OR COPD TWICE PREVENTION. PREVENTION. DAILY FOR ASTHMA OR COPD PREVENTION . albuterol albuterol No albuterol [place] sulfate HFA sulfate HFA sulfate Communi 90 90 HFA 90 ty mcg/actuati mcg/actuati mcg/actuat Hospita on aerosol on aerosol ion l inhaler inhaler aerosol Clinic s INHALE TWO INHALE TWO inhaler (2) PUFF(S) (2) PUFF(S) INHALE TWO BY MOUTH 4 BY MOUTH 4 (2) TO 6 TIMES TO 6 TIMES PUFF(S) BY A DAY FOR A DAY FOR MOUTH 4 TO ASTHMA OR ASTHMA OR 6 TIMES A COPD. COPD. DAY FOR ASTHMA OR COPD. levothyroxi levothyroxi No levothyrox [place] ne 75 mcg ne 75 mcg ine 75 mcg Communi tablet TAKE tablet TAKE tablet ty ONE (1) ONE (1) TAKE ONE Hospi ta TABLET(S) TABLET(S) (1) l BY MOUTH BY MOUTH TABLET(S) Cl inics EVERY EVERY BY MOUTH MORNING ON MORNING ON EVERY AN EMPTY AN EMPTY MORNING ON STOMACH. STOMACH. AN EMPTY STOMACH. montelukast montelukast No montelukas [place] 10 mg 10 mg t 10 mg Communi tablet TAKE tablet TAKE tablet ty ONE (1) ONE (1) TAKE ONE Hospi ta TABLET(S) TABLET(S) (1) l BY MOUTH BY MOUTH TABLET(S) Cl inics ONCE A DAY. ONCE A DAY. BY MOUTH ONCE A DAY. Vitamin D Vitamin D Yes [facility] TABS TABS Physici ans pantoprazol pantoprazol No pantoprazo [place] e 40 mg e 40 mg le 40 mg [facility] tablet,ernestine tablet,ernestine tablet,del ty yed release yed release ayed H ospita TAKE 1 TAKE 1 release l TABLET BY TABLET BY TAKE 1 Cli nics MOUTH ONCE MOUTH ONCE TABLET BY A DAY A DAY MOUTH ONCE A DAY Premarin Premarin No Premarin Swe jany 0.625 0.625 0.625 Communi mg/gram mg/gram mg/gram ty vaginal vaginal vaginal Hospit a cream USE cream USE cream USE l DIRECTED DIRECTED C linics 10/17 10/17 DIRECTED APPICATORFU APPICATORFU 10/17 L ONCE A L ONCE A APPICATORF WEEK. WEEK. UL ONCE A WEEK. Symbicort Symbicort No Symbicort [place] 160 mcg-4.5 160 mcg-4.5 160 [facility] mcg/actuati mcg/actuati mcg-4.5 ty on HFA on HFA mcg/actuat Hospi ta aerosol aerosol ion HFA l inhaler inhaler aerosol Clinic s INHALE TWO INHALE TWO inhaler (2) PUFF(S) (2) PUFF(S) INHALE TWO BY MOUTH BY MOUTH (2) TWICE DAILY TWICE DAILY PUFF(S) BY FOR ASTHMA FOR ASTHMA MOUTH OR COPD OR COPD TWICE PREVENTION. PREVENTION. DAILY FOR ASTHMA OR COPD PREVENTION . albuterol albuterol No albuterol [place] sulfate HFA sulfate HFA sulfate [facility]i 90 90 HFA 90 ty mcg/actuati mcg/actuati mcg/actuat Hospita on aerosol on aerosol ion l inhaler inhaler aerosol Clinic s INHALE TWO INHALE TWO inhaler (2) PUFF(S) (2) PUFF(S) INHALE TWO BY MOUTH 4 BY MOUTH 4 (2) TO 6 TIMES TO 6 TIMES PUFF(S) BY A DAY FOR A DAY FOR MOUTH 4 TO ASTHMA OR ASTHMA OR 6 TIMES A COPD. COPD. DAY FOR ASTHMA OR COPD. famotidine famotidine No 1 BID famotidine [place] 20 mg 20 mg 20 mg Communi tablet Take tablet Take tablet ty 1 tablet 1 tablet Take 1 Hospi ta twice a day twice a day tablet l by oral by oral twice a Clinic s route. route. day by oral route. levothyroxi levothyroxi No levothyrox [place] ne 75 mcg ne 75 mcg ine 75 mcg [facility]i tablet TAKE tablet TAKE tablet ty ONE (1) ONE (1) TAKE ONE Hospi ta TABLET(S) TABLET(S) (1) l BY MOUTH BY MOUTH TABLET(S) Cl inics EVERY EVERY BY MOUTH MORNING ON MORNING ON EVERY AN EMPTY AN EMPTY MORNING ON STOMACH. STOMACH. AN EMPTY STOMACH. montelukast montelukast No montelukas [place] 10 mg 10 mg t 10 mg [facility] tablet TAKE tablet TAKE tablet ty ONE (1) ONE (1) TAKE ONE Hospi ta TABLET(S) TABLET(S) (1) l BY MOUTH BY MOUTH TABLET(S) Cl inics ONCE A DAY. ONCE A DAY. BY MOUTH ONCE A DAY. pantoprazol pantoprazol No pantoprazo [place] e 40 mg e 40 mg le 40 mg [facility] tablet,ernestine tablet,ernestine tablet,del ty yed release yed release ayed [facility]spita TAKE 1 TAKE 1 release l TABLET BY TABLET BY TAKE 1 Cli nics MOUTH ONCE MOUTH ONCE TABLET BY A DAY A DAY MOUTH ONCE A DAY Premarin Premarin No Premarin Swe jany 0.625 0.625 0.625 Communi mg/gram mg/gram mg/gram ty vaginal vaginal vaginal Hospit a cream USE cream USE cream USE l DIRECTED DIRECTED C linics 10/17 10/17 DIRECTED APPICATERFU APPICATERFU 10/17 L ONCE A L ONCE A APPICATERF WEEK. WEEK. UL ONCE A WEEK. Symbicort Symbicort No Symbicort [place] 160 mcg-4.5 160 mcg-4.5 160 [facility] mcg/actuati mcg/actuati mcg-4.5 ty on HFA on HFA mcg/actuat Hospi ta aerosol aerosol ion HFA l inhaler inhaler aerosol Clinic s INHALE TWO INHALE TWO inhaler (2) PUFF(S) (2) PUFF(S) INHALE TWO BY MOUTH BY MOUTH (2) TWICE DAILY TWICE DAILY PUFF(S) BY FOR ASTHMA FOR ASTHMA MOUTH OR COPD OR COPD TWICE PREVENTION. PREVENTION. DAILY FOR ASTHMA OR COPD PREVENTION . albuterol albuterol No albuterol [place] sulfate HFA sulfate HFA sulfate [facility] 90 90 HFA 90 ty mcg/actuati mcg/actuati mcg/actuat Hospita on aerosol on aerosol ion l inhaler inhaler aerosol Clinic s INHALE TWO INHALE TWO inhaler (2) PUFF(S) (2) PUFF(S) INHALE TWO BY MOUTH 4 BY MOUTH 4 (2) TO 6 TIMES TO 6 TIMES PUFF(S) BY A DAY FOR A DAY FOR MOUTH 4 TO ASTHMA OR ASTHMA OR 6 TIMES A COPD. COPD. DAY FOR ASTHMA OR COPD. famotidine famotidine No 1 BID famotidine [place] 20 mg 20 mg 20 mg Communi tablet Take tablet Take tablet ty 1 tablet 1 tablet Take 1 Hospi ta twice a day twice a day tablet l by oral by oral twice a Clinic s route for route for day by 90 days. 90 days. oral route for 90 days. levothyroxi levothyroxi No levothyrox [place] ne 75 mcg ne 75 mcg ine 75 mcg [facility] tablet TAKE tablet TAKE tablet ty ONE (1) ONE (1) TAKE ONE Hospi ta TABLET(S) TABLET(S) (1) l BY MOUTH BY MOUTH TABLET(S) Cl inics EVERY EVERY BY MOUTH MORNING ON MORNING ON EVERY AN EMPTY AN EMPTY MORNING ON STOMACH. STOMACH. AN EMPTY STOMACH. montelukast montelukast No montelukas [place] 10 mg 10 mg t 10 mg [facility] tablet TAKE tablet TAKE tablet ty ONE (1) ONE (1) TAKE ONE [facility] ta TABLET(S) TABLET(S) (1) l BY MOUTH BY MOUTH TABLET(S) Cl inics ONCE A DAY. ONCE A DAY. BY MOUTH ONCE A DAY. NAC 600 mg NAC 600 mg No 2capsul Q1D NAC 600 mg [place] capsule capsule e(s) capsule Commun i Take 2 Take 2 Take 2 ty capsules capsules capsules Hos roman every day every day every day l by oral by oral by oral Clinic s route for route for route for 90 days. 90 days. 90 days. pantoprazol pantoprazol No pantoprazo [place] e 40 mg e 40 mg le 40 mg [facility] tablet,ernestine tablet,ernestine tablet,del ty yed release yed release ayed [facility] TAKE 1 TAKE 1 release l TABLET BY TABLET BY TAKE 1 Cli nics MOUTH ONCE MOUTH ONCE TABLET BY A DAY A DAY MOUTH ONCE A DAY Premarin Premarin No Premarin Swe jany 0.625 0.625 0.625 Communi mg/gram mg/gram mg/gram ty vaginal vaginal vaginal Hospit a cream cream cream l INSERT INSERT INSERT Clinics ONE-FOURTH ONE-FOURTH ONE-FOURTH (10/17) (10/17) (10/17) APPLICATORF APPLICATORF APPLICATOR UL INTO UL INTO FUL INTO VAGINA ONCE VAGINA ONCE VAGINA A WEEK. A WEEK. ONCE A WEEK. Symbicort Symbicort No Symbicort [place] 160 mcg-4.5 160 mcg-4.5 160 [facility] mcg/actuati mcg/actuati mcg-4.5 ty on HFA on HFA mcg/actuat Hospi ta aerosol aerosol ion HFA l inhaler inhaler aerosol Clinic s INHALE TWO INHALE TWO inhaler (2) PUFF(S) (2) PUFF(S) INHALE TWO BY MOUTH BY MOUTH (2) TWICE DAILY TWICE DAILY PUFF(S) BY FOR ASTHMA FOR ASTHMA MOUTH OR COPD OR COPD TWICE PREVENTION. PREVENTION. DAILY FOR ASTHMA OR COPD PREVENTION . albuterol albuterol No albuterol [place] sulfate HFA sulfate HFA sulfate [facility] 90 90 HFA 90 ty mcg/actuati mcg/actuati mcg/actuat Hospita on aerosol on aerosol ion l inhaler inhaler aerosol Clinic s INHALE TWO INHALE TWO inhaler (2) PUFF(S) (2) PUFF(S) INHALE TWO BY MOUTH 4 BY MOUTH 4 (2) TO 6 TIMES TO 6 TIMES PUFF(S) BY A DAY FOR A DAY FOR MOUTH 4 TO ASTHMA OR ASTHMA OR 6 TIMES A COPD. COPD. DAY FOR ASTHMA OR COPD. amitriptyli amitriptyli No amitriptyl [place] ne 50 mg ne 50 mg ine 50 mg [facility] tablet TAKE tablet TAKE tablet ty ONE (1) ONE (1) TAKE ONE Hospi ta TABLET(S) TABLET(S) (1) l BY MOUTH AT BY MOUTH AT TABLET(S) Clinics BEDTIME. BEDTIME. BY MOUTH AT BEDTIME. levothyroxi levothyroxi No levothyrox [place] ne 75 mcg ne 75 mcg ine 75 mcg [facility]i tablet TAKE tablet TAKE tablet ty ONE (1) ONE (1) TAKE ONE [facility]pi ta TABLET(S) TABLET(S) (1) l BY MOUTH BY MOUTH TABLET(S) Cl inics EVERY EVERY BY MOUTH MORNING ON MORNING ON EVERY AN EMPTY AN EMPTY MORNING ON STOMACH. STOMACH. AN EMPTY STOMACH. montelukast montelukast No montelukas [place] 10 mg 10 mg t 10 mg [facility]i tablet TAKE tablet TAKE tablet ty ONE (1) ONE (1) TAKE ONE Hospi ta TABLET(S) TABLET(S) (1) l BY MOUTH BY MOUTH TABLET(S) Cl inics ONCE A DAY. ONCE A DAY. BY MOUTH ONCE A DAY. pantoprazol pantoprazol No pantoprazo [place] e 40 mg e 40 mg le 40 mg [facility] tablet,ernestine tablet,ernestine tablet,del ty yed release yed release ayed [facility]spita TAKE ONE TAKE ONE release l (1) (1) TAKE ONE Clinics TABLET(S) TABLET(S) (1) BY MOUTH BY MOUTH TABLET(S) ONCE A DAY ONCE A DAY BY MOUTH ONE HOUR ONE HOUR ONCE A DAY BEFORE FOOD BEFORE FOOD ONE HOUR IN THE IN THE BEFORE MORNING. MORNING. FOOD IN THE MORNING. Premarin Premarin No Premarin Swe jany 0.625 0.625 0.625 Communi mg/gram mg/gram mg/gram ty vaginal vaginal vaginal Hospit a cream USE cream USE cream USE l DIRECTED DIRECTED C linics 10/17 10/17 DIRECTED APPICATORFU APPICATORFU 10/17 L ONCE A L ONCE A APPICATORF WEEK. WEEK. UL ONCE A WEEK. Symbicort Symbicort No Symbicort [place] 160 mcg-4.5 160 mcg-4.5 160 C ommuni mcg/actuati mcg/actuati mcg-4.5 ty on HFA on HFA mcg/actuat Hospi ta aerosol aerosol ion HFA l inhaler inhaler aerosol Clinic s INHALE TWO INHALE TWO inhaler (2) PUFF(S) (2) PUFF(S) INHALE TWO BY MOUTH BY MOUTH (2) TWICE DAILY TWICE DAILY PUFF(S) BY FOR ASTHMA FOR ASTHMA MOUTH OR COPD OR COPD TWICE PREVENTION. PREVENTION. DAILY FOR ASTHMA OR COPD PREVENTION . Levothyroxi Levothyroxi Yes U T ne Sodium ne Sodium Physi ci 50 MCG Oral 50 MCG Oral a ns Tablet Tablet Magnesium Magnesium Yes UT CAPS CAPS Physici ans Hair Hair Yes UT Vitamins Vitamins Physici TABS TABS ans Benadryl 25 Benadryl 25 Yes U T MG CAPS MG CAPS Physici ans Immunizations Ordered Immunization Filled Immunization Date Status Commen ts Source Name Name Influenza, Influenza, 2021-08-11 Completed [place] injectable, MDCK, injectable, MDCK, 10:55:00 [facility], [facility] 2021-08-11 Completed [place] injectable, MDCK, injectable, MDCK, 10:55:00 [facility], Influ[facility], 2021-08-11 Completed [place] injectable, MDCK, injectable, MDCK, 10:55:00 [facility] influenza, influenza, 2021-08-11 Completed [place] injectable, injectable, 00:00:00 [facility] influenza, influenza, 2021-08-11 Completed [place] injectable, injectable, 00:00:00 [facility] influenza, influenza, 2021-08-11 Completed [place] injectable, injectable, 00:00:00 [facility] pneumococcal pneumococcal 2021-05-25 Completed [place] polysaccharide PPV23 polysaccharide PPV23 00:00:00 [facility] pneumococcal pneumococcal 2021-05-25 Completed [place] polysaccharide PPV23 polysaccharide PPV23 00:00:00 [facility] pneumococcal pneumococcal 2021-05-25 Completed [place] polysaccharide PPV23 polysaccharide PPV23 00:00:00 [facility] AS03 Adjuvant AS03 Adjuvant 2020-07-23 Completed [place] 00:00:00 [facility] AS03 Adjuvant AS03 Adjuvant 2020-07-23 Completed [place] 00:00:00 [facility] AS03 Adjuvant AS03 Adjuvant 2020-07-23 Completed [place] 00:00:00 [facility] AS03 Adjuvant AS03 Adjuvant 2020-07-23 Completed [place] 00:00:00 [facility] AS03 Adjuvant AS03 Adjuvant 2020-07-23 Completed [place] 00:00:00 [facility] AS03 Adjuvant AS03 Adjuvant 2020-07-23 Completed [place] 00:00:00 [facility] AS03 Adjuvant AS03 Adjuvant 2020-07-23 Completed [place] 00:00:00 [facility] AS03 Adjuvant AS03 Adjuvant 2020-07-23 Completed [place] 00:00:00 [facility] influenza, influenza, 2020-07-14 Completed [place] injectable, injectable, 00:00:00 [facility] influenza, influenza, 2020-07-14 Completed [place] injectable, injectable, 00:00:00 [facility] influenza, influenza, 2020-07-14 Completed [place] injectable, injectable, 00:00:00 [facility] influenza, influenza, 2020-07-14 Completed [place] injectable, injectable, 00:00:00 [facility] influenza, influenza, 2020-07-14 Completed [place] injectable, injectable, 00:00:00 [facility] influenza, influenza, 2020-07-14 Completed [place] injectable, injectable, 00:00:00 [facility] influenza, influenza, 2020-07-14 Completed [place] injectable, injectable, 00:00:00 [facility] influenza, influenza, 2020-07-14 Completed [place] injectable, injectable, 00:00:00 [facility] pneumococcal pneumococcal 2015-10-14 Completed [place] polysaccharide PPV23 polysaccharide PPV23 00:00:00 [facility] varicella varicella 2015-10-14 Completed [place] 00:00:00 [facility] pneumococcal pneumococcal 2015-10-14 Completed [place] polysaccharide PPV23 polysaccharide PPV23 00:00:00 [facility] varicella varicella 2015-10-14 Completed [place] 00:00:00 [facility] pneumococcal pneumococcal 2015-10-14 Completed [place] polysaccharide PPV23 polysaccharide PPV23 00:00:00 [facility] varicella varicella 2015-10-14 Completed [place] 00:00:00 [facility] pneumococcal pneumococcal 2015-10-14 Completed [place] polysaccharide PPV23 polysaccharide PPV23 00:00:00 [facility] varicella varicella 2015-10-14 Completed [place] [facility] pneumococcal 2015-10-14 Completed [place] polysaccharide PPV23 polysaccharide PPV23 00:00:00 [facility] varicella varicella 2015-10-14 Completed [place] 00:00:00 [facility] pneumococcal pneumococcal 2015-10-14 Completed [place] polysaccharide PPV23 polysaccharide PPV23 00:00:00 [facility] varicella varicella 2015-10-14 Completed [place] 00:00:[facility] pneumococcal pneumococcal 2015-10-14 Completed [place] polysaccharide PPV23 polysaccharide PPV23 00:00:00 [facility] varicella varicella 2015-10-14 Completed [place] 00:00:[facility] pneumococcal pneumococcal 2015-10-14 Completed [place] polysaccharide PPV23 polysaccharide PPV23 00:00:00 [facility] varicella varicella 2015-10-14 Completed [place] 00:00:00 [facility] Vital Signs Vital Name Observation Time Observation Value Comments Source Systolic blood 2021-11-30 132 mm[Hg] [facility] 20:17:00 Diastolic blood 2021-11-30 66 mm[Hg] [facility] pressure 20:17:00 Body temperature 2021-11-30 36.56 [facility]rud[facility] 20:17:00 Body height 2021-11-30 161.3 cm [facility] 20:17:00 Body weight 2021-11-30 60.419 kg [facility] 20:17:00 BMI 2021-11-30 23.23 kg/m2 [facility] 20:17:00 Systolic blood 2023-05-15 125 mm[Hg] [facility] pressure 18:43:00 [facility] Diastolic blood 2023-05-15 64 mm[Hg] [facility] pressure 18:43:00 [facility] Respiratory rate 2023-05-15 14 /min [facility] 18:43:00 [facility] Oxygen saturation 2023-05-15 99 /min [facility] Arterial blood 18:43:00 [facility] Pulse oximetry Branch Heart rate 2023-05-15 75 /min [facility] 18:35:00 [facility] Body temperature 2023-05-15 36.56 Gertrudis [facility] 18:28:00 [facility] Body height 2023-05-08 161.3 cm [facility] 16:00:00 [facility] Body weight 2023-05-08 58.968 kg [facility] 16:00:00 [facility] BMI 2023-05-08 22.67 kg/m2 [facility] 16:00:00 [facility] Systolic blood 2023-05-15 132 mm[Hg] [facility] pressure 15:54:00 [facility] Diastolic blood 2023-05-15 55 mm[Hg] [facility] pressure 15:54:00 [facility] Heart rate 2023-05-15 82 /min [facility] 15:54:00 [facility] Body temperature 2023-05-15 36.44 Gertrudis [facility] 15:54:00 [facility] Respiratory rate 2023-05-15 19 /min [facility] 15:54:00 [facility] Oxygen saturation 2023-05-15 100 /min [facility] Arterial blood 15:54:00 [facility] by Pulse oximetry [place] Body height 2023-05-08 161.3 cm [facility] 16:00:00 [facility] Body weight 2023-05-08 58.968 kg [facility] 16:00:00 [facility] BMI 2023-05-08 22.67 kg/m2 [facility] 16:00:00 [facility] Systolic blood 2022-03-28 110 mm[Hg] [facility] 18:40:00 Diastolic blood 2022-03-28 60 mm[Hg] [facility] pressure 18:40:00 Body temperature 2022-03-28 36.17 [facility] 18:40:00 Body height 2022-03-28 161.3 cm [facility] 18:40:00 Body weight 2022-03-28 60.328 kg [facility] 18:40:00 BMI 2022-03-28 23.19 kg/m2 [facility] 18:40:00 Systolic blood 2022-02-21 120 mm[Hg] [facility] pressure 19:35:00 Diastolic blood 2022-02-21 70 mm[Hg] [facility] pressure 19:35:00 Body temperature 2022-02-21 36.44 Gertrudis [facility] 19:35:00 Body height 2022-02-21 161.3 cm [facility] 19:35:00 Body weight 2022-02-21 60.328 kg [facility] 19:35:00 BMI 2022-02-21 23.19 kg/m2 [facility] 19:35:00 BP Diastolic 2021-12-26 55 mm[Hg] [facility] Height 2021-12-26 63 [in_i] [place] [facility] BMI (Body Mass 2021-12-26 24.2 kg/m2 [place] [facility]) 00:00:00 [facility] BP Systolic 2021-12-26 139 mm[Hg] [place] [facility] Body Weight 2021-12-26 2188.8 [oz_av] [place] [facility] 00:[facility] Systolic blood 2021-11-30 132 mm[Hg] [facility] 20:17:00 Diastolic blood 2021-11-30 66 mm[Hg] [facility] 20:17:00 Body temperature 2021-11-30 36.56 [facility] 20:17:00 Body height 2021-11-30 161.3 cm [facility] 20:17:00 Body weight 2021-11-30 60.419 kg [facility] 20:17:00 BMI 2021-11-30 23.23 kg/m2 [facility] 20:17:00 Systolic blood 2021-11-17 139 mm[Hg] [facility] pressure 15:40:00 [facility] Diastolic blood 2021-11-17 56 mm[Hg] [facility] pressure 15:40:00 [facility] Heart rate 2021-11-17 71 /min [facility] 15:40:00 [facility] Respiratory rate 2021-11-17 20 /min [facility] 15:40:00 [facility] Body height 2021-11-17 157.5 cm [facility] 15:40:00 [facility] Body weight 2021-11-17 61.961 kg [facility] 15:40:00 [facility] BMI 2021-11-17 24.98 kg/m2 [facility] 15:40:00 [facility] Oxygen saturation 2021-11-17 99 /min [facility] Arterial blood 15:40:00 [facility] Pulse oximetry [place] BP Diastolic 2021-11-07 72 mm[Hg] [place] [facility] Height 2021-11-07 63 [in_i] [place] [facility] 00:[facility] BMI (Body Mass 2021-11-07 23.7 kg/m2 [place] [facility] Index) 00:00:00 [facility] BP Systolic 2021-11-07 135 mm[Hg] [place] [facility] Body Weight 2021-11-07 2137.6 [oz_av] [place] [facility] 00:[facility] BP Diastolic 2021-08-11 70 mm[Hg] [place] [facility] 00:[facility] Height 2021-08-11 63 [in_i] [place] [facility] 00:[facility] BMI (Body Mass 2021-08-11 23.9 kg/m2 [place] [facility] Index) 00:00:00 [facility] BP Systolic 2021-08-11 143 mm[Hg] [place] [facility] Body Weight 2021-08-11 2160 [oz_av] [place] [facility] 00:[facility] BP Diastolic 2021-02-06 65 mm[Hg] [place] [facility] 00:[facility] Height 2021-02-06 63 [in_i] [place] [facility] 00:[facility] BMI (Body Mass 2021-02-06 23.9 kg/m2 [place] [facility] Index) 00:00:00 [facility] BP Systolic 2021-02-06 148 mm[Hg] [place] [facility] 00[facility] Body Weight 2021-02-06 2160 [oz_av] [place] [facility] 00:[facility] BP Diastolic 2021-01-26 65 mm[Hg] [place] [facility] 00:[facility] Height 2021-01-26 63 [in_i] [place] [facility] 00:[facility] BMI (Body Mass 2021-01-26 23.9 kg/m2 [place] [facility] Index) 00:00:00 [facility] BP Systolic 2021-01-26 147 mm[Hg] [place] [facility] 00:[facility] Body Weight 2021-01-26 2156.8 [oz_av] [place] [facility] 00[facility] BP Diastolic 2021-01-19 71 mm[Hg] [facility] 00:[facility]:00 [facility] Height 2021-01-19 63 [facility] BMI (Body Mass 2021-01-19 23.7 kg/m2 [facility] Index) 00:00:00 [facility] BP Systolic 2021-01-19 143 mm[Hg] [facility] 00:00:00 [facility] Body Weight 2021-01-19 2144 [oz_av] [facility] 00:00:00 [facility] Systolic blood 2023-03-28 115 mm[Hg] [facility] pressure 15:42:00 Hospital Diastolic blood 2023-03-28 71 mm[Hg] [facility] pressure 15:42:00 Hospital Heart rate 2023-03-28 75 /min [facility] 15:42:00 Hospital Body temperature 2023-03-28 36.56 Gertrudis [facility] 15:42:00 Hospital Body height 2023-02-19 157.5 cm [facility] 15:53:00 Hospital Body weight 2023-02-19 58.968 kg [facility] 15:53:00 Hospital BMI 2023-02-19 23.78 kg/m2 [facility] 15:53:00 Hospital Respiratory rate 2023-01-08 18 /min [facility] 13:29:18 Hospital Oxygen saturation 2023-01-08 96 /min [facility] in Arterial blood 13:29:18 Hospital by Pulse oximetry BP Systolic 2019-06-30 118 mm[Hg] Location: LUE; [facility] 10:52:00 Position: Sitting BP Diastolic 2019-06-30 64 mm[Hg] Location: LUE; [facility] 10:52:00 Position: Sitting Height 2019-06-30 63.5 [in_us] [facility] 10:52:00 Weight 2019-06-30 135 [lb_av] [facility] 10:52:00 Body Mass Index 2019-06-30 23.54 kg/m2 [facility] Calculated 10:52:00 Procedures Procedure Date / Time Performing Source Performed Clinician PHACOEMULSIFICATION OF 2023-05-15 Jaren Wong [facility] CATARACT WITH INTRAOCULAR 17:43:00 Medica l Branch LENS IMPLANT DAY SURGERY - ADC 2023-05-15 Doctor Unassigned, [facility] [place] 05:01:00 [facility] ASSIGNMENT OF BENEFITS 2023-05-06 Doctor Unassigned, [facility] 16:35:04 [facility] XR LUMBAR SPINE 2 OR 3 VW 2023-03-28 Shwetha Yeh [facility] 15:28:30 CBC WITH PLATELET AND 2023-01-07 Jocelyn Randle [facility] DIFFERENTIAL 10:21:00 BASIC METABOLIC PANEL 2023-01-07 [facility] 10:21[facility]00 ESTIMATED GFR 2023-01-07 Jocelyn Randle [facility] 10:21:00 CBC WITH PLATELET AND 2023-01-06 [facility] 10:15:00 BASIC METABOLIC PANEL 2023-01-06 [facility] 10:15:00 ESTIMATED GFR 2023-01-06 Jocelyn Randle [facility] pital 10:15:00 XR LUMBAR SPINE COMPLETE 4+ 2023-01-05 Jocelyn Randle [facility] VW 20:50:14 BASIC METABOLIC PANEL 2023-01-05 [facility] 09:58:00 CBC WITH PLATELET AND 2023-01-05 [facility] 09:58:00 ESTIMATED GFR 2023-01-05 Jocelyn Randle [facility] pital 09:58:00 CT LUMBAR SPINE WO CONTRAST 2023-01-05 RaziaJocelyn beyer [facility] 07:05:19 OR FL < 1 HOUR 2023-01-04 Shwetha Yeh Hosp ital 20:40:00 ARTERIAL LINE 2023-01-04 Lynn Marquez spital 18:56:46 CT AN ELECTIVE ENDOTRACHEAL 2023-01-04 Lynn Marquez [facility] AIRWAY 17:59:00 FUSION, SPINE, LUMBAR, WITH 2023-01-[address] [facility] LAMINECTOMY, POSTERIOR 17:50:00 APPROACH POC GLUCOSE 2023-01-04 Shwetha [facility]ehist [facility]osp ital 15:50:00 ABO AND RH CONFIRMATION BY 2023-01-04 Rao Shwethakandace Alvarado [facility] PROTOCOL 15:40:00 COVID-19 QUALITATIVE RT-PCR 2023-01-02 Cassidy Rodriguez [facility] 18:55:00 URINE CULTURE 2023-01-02 Rao Shwethakandace Alvarado [facility] 15:35:00 URINALYSIS, AUTOMATED WITH 2023-01-02 Shwetha Yeh [facility] MICROSCOPY 15:35:00 CBC WITH PLATELET AND 2023-01-02 Shwetha Yeh [facility] DIFFERENTIAL 15:34:00 COMPREHENSIVE METABOLIC PANEL 2023-01-02 [facility] 15:34:00 PROTHROMBIN TIME WITH INR 2023-01-02 Shwetha Yeh [facility] 15:34:00 PARTIAL THROMBOPLASTIN TIME 2023-01-[address] [facility] (PTT) 15:34:00 TYPE AND SCREEN 2023-01-02 Shwetha Yeh [facility] 15:34:00 HEMOGLOBIN A1C 2023-01-02 Cassidy Rodriguez [facility] 15:34:00 ESTIMATED GFR 2023-01-02 Rao Shwetha [facility] Hosp ital 15:34:00 DEXA, axial skeleton + 2021-12-26 [facility] mmunity vertebral fracture assessment 00:00:[address] [facility] MAMMO, screening, digital, 2021-12-26 [facility] bilateral 00:00:00 [facility] Clin[facility] XR, chest, 2 view 2021-12-24 [facility] 00:00:00 [facility] electrocardiogram 2021-12-24 [facility] 00:00:00 [facility] electrocardiogram, routine 2021-02-06 Critical [facility] hospital ECG, 12 leads min 00:00:00 Hospital Clini cs MAMMO, screening, digital, 2021-01-26 [facility] bilateral 00:00:00 Hospital Clinics bone density 2021-01-26 [facility] 00:00:00 [facility] Insertion Of Mesh For Pelvic Floor Repair [facility] of [facility]domin[facility] History of Install Sacral [facility] Nerve Neurostimulator By Incision Partial Hysterectomy [facility] Total Hysterectomy [facility] Procedure on Bladder [facility] Plan of Care Planned Activity Planned Date Details Comments Source Future Scheduled Test 2023-06-11 COVID-19 VACCINE (#1) [facility] 16:10:25 [code = COVID-19 VACCINE (#1)] Future Scheduled Test 2023-06-11 Hepatitis C screening [facility] 16:10:25 (procedure) [code = 904661616] Future Scheduled Test 2023-06-11 SHINGLES VACCINES (1 [facility] 16:10:25 of 2) [code = SHINGLES VACCINES (1 of 2)] Future Scheduled Test 2023-06-11 65+ PNEUMOCOCCAL Me [facility] 16:10:25 VACCINE (2 - PCV) [code = 65+ PNEUMOCOCCAL VACCINE (2 - PCV)] Future Scheduled Test 2023-06-11 INFLUENZA VACCINE [facility] 16:10:25 (#1) [code = INFLUENZA VACCINE (#1)] Diagnostic Test 2021-12-26 [facility]invasive [place] [facility]00 colorectal cancer DNA [facility] + occult blood screening, QL, stool [code = noninvasive colorectal cancer DNA + occult blood screening, QL, stool] Instructions [facility] Encounters Start End Encounter Admission Attending Care Care Encounter Source Date/Time Date/Time Type Type Clinicians Facility Department ID 2021-11-29 Outpatient [facility] [id number] [place] 08:14:44 [facility] 2023-05-15 2023-05-15 Outpatient R VENANCIO [facility] OPH [id number] Univers 10:35:00 13:49:00 JAREN ramos [facility] 2023-05-15 2023-05-15 Hospital [facility] [id number] Univers 10:35:00 13:49:00 Encounter Jaren COTA 350.1.13.10 [place]achel [id number] [place] [id number] Branch 2023-05-15 2023-05-15 Surgery [facility] 1.2.840.114 [id number] Univers 12:18:00 12:50:00 Jaren COTA 350.1.13.10 [facility] [place] [id number] [facility] 020 Branch 2023-05-15 2023-05-15 Orders Doctor JACKIE 1.2.840.114 [id number] Univers 00:00:00 00:00:00 Only Unassigned, TEJAS 350.1.13.10 ity of [facility] 4.2.7.2.686 [place] as [id number] [facility] 009 Branch 2023-05-06 2023-05-06 Orders Doctor JACKIE 1.2.840.114 [id number] Univers 00:00:00 00:00:00 Only Unassigned, TEJAS 350.1.13.10 ity of [facility] 4.2.7.2.686 Santos as [id number] [facility] 009 Branch 2023-03-28 2023-03-28 [facility] Rao, 1.2.840.1 [id number] Methodi 10:02:57 23:59:00 Encounter Shwetha 50920.1.[address] Yuan 3.430.2.7 Hospit a .3.112159 l .8 2023-03-28 2023-03-28 Office Rao, 1.2.840.1 [id number] Methodi 11:00:00 11:09:50 Visit Shwetha 60295.1.[address] Yuan 3.430.2.7 Hospit a .3.763124 l .8 2023-03-28 2023-03-28 Outpatient [facility] [id number] [place] 00:00:00 00:00:00 SHWETHA [address] 2023-03-28 2023-03-28 Outpatient [facility] [id number] [place] 00:00:00 00:00:00 SHWETHA [address] 2023-03-25 2023-03-25 Orders Ramiro, 1.2.840.1 [id number] Methodi 00:00:00 00:00:00 Only Mildred 30588.1.[address] 3.430.2.7 Hospit a .3.604942 l .8 2023-02-19 2023-02-19 Office Sun, 1.2.840.1 [id number] Methodi 11:00:00 11:08:18 Visit Shwetha 13590.1.[address] Yuan 3.430.2.7 Hospit a .3.081852 l .8 2023-02-19 2023-02-19 Outpatient [place] [id number] [place] 00:00:00 00:00:00 SHWETHA [address] 2023-02-19 2023-02-19 Outpatient [facility] [id number] [place] 00:00:00 00:00:00 SHWETHA [address] 2023-02-19 2023-02-19 Travel 1.2.840.1 1.2.263.132 [id number] Methodi 00:00:00 00:00:[address] 3.430.2.7 0.2.7.3.698 spita .3.830232 084.8 l .8 2023-02-18 2023-02-18 Orders Rubio, 1.2.840.1 [id number] Methodi 00:00:00 00:00:00 Only Mildred 33948.1.[address] 3.430.2.7 Hospit a .3.072600 l .8 2023-01-17 2023-01-17 Office Kit, 1.2.840.1 [id number] Methodi 14:30:00 14:30:00 Visit Chava 35210.1.[address] 3.430.2.7 Hospit a .3.191331 l .8 2023-01-17 2023-01-17 Outpatient [facility] [id number] [place] 00:00:00 00:00:[address]WETHA [address] 2023-01-17 2023-01-17 Travel 1.2.840.1 1.2.219.236 [id number] Methodi 00:00:00 00:00:[address] 3.430.2.7 0.2.7.3.698 spita .3.676272 084.8 l .8 2023-01-17 2023-01-17 Outpatient [facility] [id number] [place] 00:00:00 00:00:[address] 2023-01-16 2023-01-16 Orders Rubio, 1.2.840.1 [id number] Methodi 00:00:00 00:00:00 Only Mildred 93682.1.[address] 3.430.2.7 Hospit a .3.024931 l .8 2023-01-10 2023-01-10 Orders Rubio, 1.2.840.1 [id number] Methodi 00:00:00 00:00:00 Only Mildred 59114.1.[address] 3.430.2.7 Hospit a .3.062490 l .8 2023-01-10 2023-01-10 Telephone Kit 1.2.840.1 [id number] Methodi 00:00:00 00:00:[address] 3.430.2.7 Hospit a .3.946088 l .8 2023-01-04 2023-01-08 [facility] Shwetha Yeh 1.2.840.1 [id number] Methodi 08:34:00 12:16:00 Encounter Jocelyn Randle 43601.1.[address] 3.430.2.7 Hospit a .3.111849 l .8 2023-01-08 2023-01-08 Documentat Provider, 1.2.840.1 [id number] Methodi 00:00:00 00:00:00 ion Desmond 09100.1.[address] 3.430.2.7 Hospit a .3.920600 l .8 2023-01-04 2023-01-08 Inpatient RAZIA [facility] 021 [id number] [place] 00:00:00 00:00:[address] 2023-01-04 2023-01-04 Anesthesia Lynn Marquez 1.2.840.1 1 [id number] Methodi 12:50:00 15:54:00 Event Cassidy Rodriguez 95673.1.[address] 3.430.2.7 Hospit a .3.302928 l .8 2023-01-04 2023-01-04 Surgery Rao, 1.2.840.1 [id number] Methodi 11:00:00 15:20:[address] Yuan 3.430.2.7 Hospit a .3.832766 l .8 2023-01-04 2023-01-04 Travel 1.2.840.1 1.2.991.369 [id number] Methodi 00:00:00 00:00:[address] 3.430.2.7 0.2.7.3.698 Ho spita .3.330087 084.8 l .8 2023-01-02 2023-01-02 Pre-Admiss Rao, 1.2.840.1 [id number] Methodi 10:30:00 11:30:00 ion Shwetha 43606.1.[address] Testing Yuan 3.430.2.7 Hospit a .3.947114 l .8 2023-01-02 2023-01-02 [facility] [id number] [address] 00:00:00 00:00:[address]WETHA [address] 2023-01-02 2023-01-02 Travel 1.2.840.1 1.2.191.755 [id number] Methodi 00:00:00 00:00:[address] 3.430.2.7 0.2.7.3.698 Ho spita .3.056092 084.8 l .8 2023-01-01 2023-01-01 Travel 1.2.840.1 1.2.774.450 [id number] Methodi 00:00:00 00:00:[address] 3.430.2.7 0.2.7.3.698 Ho spita .3.229641 084.8 l .8 2022-12-20 2022-12-20 Transcribe Sun, 1.2.840.1 [id number] Methodi 00:00:00 00:00:00 Orders Shwetha 01046.1.[address] Yuan 3.430.2.7 Hospit a .3.824090 l .8 2022-11-20 2022-11-20 Office Sun, 1.2.840.1 [id number] Methodi 08:00:00 08:26:46 Visit Shwetha 00671.1.[address] Yuan 3.430.2.7 Hospit a .3.706067 l .8 2022-11-20 2022-11-20 Outpatient [facility] [id number] [place] 00:00:00 00:00:[address] SHWETHA [address] 2022-09-25 2022-09-25 Orders Rubio, 1.2.840.1 [id number] Methodi 00:00:00 00:00:00 Only Mildred 82925.1.[address] 3.430.2.7 Hospit a .3.230296 l .8 2022-07-17 2022-07-17 Office Sun, 1.2.840.1 [id number] Methodi 13:30:00 14:18:11 Visit Shwetha 49524.1.[address] Yuan 3.430.2.7 Hospit a .3.906776 l .8 2022-07-17 2022-07-17 Outpatient [facility] [id number] 00:00:00 00:00:[address] 2022-07-17 2022-07-17 Travel 1.2.840.1 1.2.911.839 [id number] Methodi 00:00:00 00:00:[address] 3.430.2.7 0.2.7.3.698 Ho spita .3.465132 084.8 l .8 2022-04-27 2022-04-27 Outpatient [facility] [id number] 00:00:00 00:00:00 SHW[address] 2022-04-27 2022-04-27 Outpatient [facility] [id number] 00:00:00 00:00:00 SHWETHA [address] 2022-04-23 2022-04-23 Telephone Lupe Kay [facility] 1.2.840 .114 [id number] [place] 00:00:00 00:00:00 Lupe Kay [place] 350.1.13.58 Health [place] 9.2.7.2.686 [place] 6 [phone] AND 5 WOMENS 2022-04-17 2022-04-17 Outpatient [facility] [id number] 00:00:00 00:00:00 447 Method i 2022-04-17 2022-04-17 Outpatient [facility] [id number] [address] 00:00:00 00:00:00 SHWETHA 604 Method i 2022-03-28 2022-03-28 Office Barney [facility] 1.2.228.385 [id number] [place] 13:40:00 15:04:43 Visit Aiyana [place] 350.1.13.58 Serjio alth [place] 9.2.7.2.686 [place] 4 [phone] AND 5 WOMENS 2022-02-21 2022-02-21 Office Peggy [facility] 1.2.840.114 [id number] [place] 14:10:00 15:05:59 Visit Nora [place] 350.1.13.58 Serjio flynn [place] 9.2.7.2.686 [place] 9 [phone] AND 5 WOMENS 2022-01-18 2022-01-18 Telephone Lupe Kay [facility] 1.2.840 .114 [id number] [place] 00:00:00 00:00:00 Lupe Kay [place] 350.1.13.58 Health [place] 9.2.7.2.686 [place] 8 [phone] AND 5 WOMENS 2022-01-092022-01-09 Outpatient VALENTIN_S [facility] 2021 [place] 07:07:00 07:07:00 0413 [facility] 2022-01-09 2022-01-09 Outpatient VALENTIN_S [facility] 2021 [place] 07:07:00 07:07:00 0720 [facility] 2021-12-26 2021-12-26 Outpatient WATERS_S [facility] 2021 [place] 11:28:00 11:28:00 0315 Commun i ty H[facility] Clinics 2021-12-26 2021-12-26 Gladys [facility] [place] 00:00:00 00:00:00 Valentin [facility] TEACHER PRIVATE-AEROTRIANGULATION SPECIALIST-C: Hospital - ty [address] [facility], [facility] Clinics [address], [place] [address] , Ph. 2021-12-26 2021-12-26 Outpatient Valentin [facility] [id number] 00:00:00 00:00:00 Gladys [id number] 2021-11-30 2021-11-30 Office ELLY Barker [facility] 1.2.840.114 [id number] [place] 14:30:00 14:58:16 Visit Kate [place] 350.1.13.58 [facility] 9.2.7.2.686 PLA[address] 5 [phone] AND 5 WOMENS 2021-11-29 2021-11-29 Telephone Lupe Kya [facility] 1.2.840 .114 [id number] [place] 00:00:00 00:00:00 Lupe Kay [place] 350.1.13.58 [facility] 9.2.7.2.686 PLAZA 3 [phone] AND 5 WOMENS 2021-11-24 2021-11-24 Telephone Lupe Kay [facility] 1.2.840 .114 [id number] [place] 00:00:00 00:00:00 Lupe Kay SUGAR 350.1.13.58 [facility] 9.2.7.2.686 PLAZA 1 [phone] AND 5 WOMENS 2021-11-17 2021-11-17 Hospital [facility] 1.2.840.114 [id number] Univers 09:40:00 23:59:00 Encounter [facility] 350.1.13.10 ity of [place] 4.2.7.2.686 Santos as AVINASH?BLEA [phone] [place] silvanomarcie SALES 8[address] [facility] OFFICE [facility] [address] 2021-11-17 2021-11-17 Outpatient R [facility] [id number] Univers 09:30:00 15:10:28 [facility] 2021-11-17 2021-11-17 Office [facility] 1.2.208.964 [id number] Univers 09:30:00 15:10:28 Visit [facility] 350.1.13.10 it y of [place] 4.2.7.2.686 Santos as AVINASH?BLEA [phone] [place] silvanomarcie SALES 198 [facility] OFFICE [facility] [address] 2021-11-07 2021-11-07 Outpatient WATERS_S [facility] 2021 [place] 06:13:00 06:13:00 0125 Commun i ty Hospita [facility] 2021-11-07 2021-11-07 Gladys [facility] [place] 00:00:00 00:00:00 [facility] 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 2021-11-07 2021-11-07 Outpatient Huntley, [facility] [id number] 00:00:00 00:00:00 Gladys [id number] 2021-11-06 2021-11-06 Outpatient WATERS_S [facility] 2021 [place] 10:13:00 10:13:00 0124 Commun i ty [facility]osp[facility] Clinics 2021-11-03 2021-11-03 Outpatient WATERS_S [facility] 2021 [place] 01:43:00 01:43:00 0121 Commun i ty Hospita [facility] Clinics 2021-08-28 2021-08-28 [facility] [place] 06:57:00 06:57:00 _L 0120 Commun i ty Hospita [facility] Clinics 2021-08-14 2021-08-14 [facility] 103 [place] 11:06:00 11:06:00 _L 1101 Commun i ty Hospita [facility] Clinics 2021-08-11 2021-08-11 Outpatient [facility] 103 [place] 10:56:00 10:56:00 _L 1029 Commun i ty Hospita [facility] Clinics 2021-08-11 2021-08-11 Outpatient [facility] b59 [id number] 00:00:00 00:00:00 , Yaz [id number] Brandi [id number] 2021-08-11 2021-08-11 Kym [facility] [place] 202 [id number] [place] 00:00:00 00:00:00 [facility] STANLEY aaron-C: [address], [facility] [place] [address] , Ph. 2021-08-09 2021-08-09 Outpatient [facility] [place] 10:29:00 10:29:00 _L 1027 Commun i ty Hospita l Clinics 2021-03-09 2021-03-[address] [facility] 1.2.840.114 [id number] [facility] 08:56:42 23:59:00 Marco A Cheema 350.1.13.10 [facility] 4.2.7.2.686 [facility] [phone] [facility] [address] 2021-03-09 2021-03-09 Outpatient R [facility] 001 [id number] Univers 00:00:00 00:00:00 MARCO A Weaver o f [facility] 2021-03-09 2021-03-09 Letter Doctor JACKIE 1.2.840.114 [id number] Univers 00:00:00 00:00:00 (Out) Unassigned, TEJAS 350.1.13.10 ity of [place] [facility] 4.2.7.2.686 [place] as [phone] [address] 2021-03-09 2021-03-09 Letter Doctor JACKIE 1.2.840.114 [id number] Univers 00:00:00 00:00:00 (Out) Unassigned, TEJAS 350.1.13.10 ity of [place] [facility] 4.2.7.2.686 Santos as [phone] [address] 2021-02-06 2021-02-06 Outpatient [facility] [place] 11:57:00 11:57:00 _L 0426 Commun i ty Hospita [facility] Clinics 2021-02-06 2021-02-06 Outpatient [facility] 196 [id number] 00:00:00 00:00:00 , Yaz [id number] Brandi [id number] 2021-02-06 2021-02-06 Yaz Paz [facility] [place] 202 [address] [place] 00:00:00 00:00:00 [facility] TOMÁS aaronP-C: [facility] ty [address] [place] [address] [address], [place] [address] , Ph. 2021-02-06 2021-02-06 Outpatient [facility] 196 [id number] 00:00:00 00:00:00 , Yaz [id number] Brandi [id number] 958C30 2021-02-03 2021-02-03 Outpatient [facility] [place] 07:30:00 07:30:00 _L 0423 Commun i ty Hospita [facility] Clinics 2021-01-26 2021-01-26 Outpatient [facility] [place] 11:41:00 11:41:00 _L 0415 Commun i ty Hospita l Clinics 2021-01-26 2021-01-26 Outpatient [facility] 18b [id number] 00:00:00 00:00:00 , Yaz [id number] Brandi [id number] 958C30 2021-01-26 2021-01-26 Outpatient [facility] 18f [id number] 00:00:00 00:00:00 , Yaz [id number] Brandi [id number] 2021-01-26 2021-01-26 Yaz Paz [facility] [place] 202 [id number] [place] 00:00:00 00:00:00 [facility] STANLEY Price-C: Hospital [address] [address] , Ph. 2021-01-19 2021-01-19 Outpatient [facility] [place] 10:43:00 10:43:00 _L 0408 [facility] i ty Hospita l [facility] 2021-01-19 2021-01-19 Outpatient [facility] 189 [id number] 00:00:00 00:00:00 , Yaz [id number] Brandi [id number] 2021-01-19 2021-01-19 Yaz Paz [facility] [place] 202 [address] [place] 00:00:00 00:00:00 [facility] BRENDAN PriceC: [address] [address], [place] [address] , Ph. 2021-01-17 2021-01-17 Outpatient [facility] [place] 12:02:00 12:02:00 _L 0406 Commun i ty Hospita l [facility] 2021-01-17 2021-01-17 Outpatient [facility] 103 [place] 12:02:00 12:02:00 _L 0407 Commun i ty Hospita l [facility] 2021-01-12 2021-01-12 Outpatient [facility] 103 [place] 02:29:00 02:29:00 _L 040 Commun i ty Hospita l [facility] 2019-06-30 2019-06-30 Appointmen ELLY BUSCH [facility] 5 [id number] [place] 11:00:00 11:00:00 tAlyssa CARLISLE NP [facility] Anali BUSCH [facility] SABRINA CARLISLE Results Test Description Test Time Test Comments Results Result Comments Source POC glucose 2023-01-04 16:01:00 Test Item Value Reference Range Interpretation Comme nts POC glucose (test code = 93191-4) 111 mg/dL 65-99 H [place]ade Hanger Name: Roberto Hardy ID : [id number] Lab Interpretation (test code = Abnormal 89002-8) [facility] [Presence] in Respiratory specimen by CLAYTON with probe [id number] 18:14:11 Test Item Value Reference Range Interpretation Comments SARS-CoV-2 (COVID-19) RNA Not detected [Presence] in Respiratory specimen by CLAYTON with probe detection (test code = 91648-9) Whether patient is employed in a Unknown healthcare setting (test code = 29054-0) Whether the patient has symptoms Unknown related to condition of interest (test code = 36150-1) Whether the patient was Unknown hospitalized for condition of interest (test code = 93294-7) Whether the patient was admitted Unknown to intensive care unit (ICU) for condition of interest (test code = 05819-1) Whether patient resides in a Unknown congregate care setting (test code = 28084-4) status (test code = Unknown 16195-3) Date and time of symptom onset Unknown (test code = 01688-2) [facility] - Serum or [id number] 00:00:00 Test Item Value Reference Range Interpretation Comments Glucose [Mass/volume] in 102 mg/dL 65-99 H Serum or Plasma (test code = 2345-7) Urea nitrogen [Mass/volume] 11 mg/dL 8-27 in Serum or Plasma (test code = 3094-0) Creatinine [Mass/volume] in 0.55 mg/dL 0.57-1.00 L Serum or Plasma (test code = 2160-0) Glomerular filtration 95 mL/min/1.73 >59 rate/1.73 sq M.predicted among non-blacks [Volume Rate/Area] in Serum, Plasma or Blood by Creatinine-based formula (CKD-EPI) (test code = 87654-1) Glomerular filtration 109 mL/min/1.73 >59 rate/1.73 sq M.predicted among blacks [Volume Rate/Area] in Serum, Plasma or Blood by Creatinine-based formula (CKD-EPI) (test code = 80519-5) Urea nitrogen/Creatinine 20 12-28 [Mass Ratio] in Serum or Plasma (test code = 3097-3) Sodium [Moles/volume] in 143 mmol/L 134-144 Serum or Plasma (test code = 2951-2) Potassium [Moles/volume] in 4.6 mmol/L 3.5-5.2 Serum or Plasma (test code = 2823-3) Chloride [Moles/volume] in 104 mmol/L 96-106 Serum or Plasma (test code = 2075-0) Carbon dioxide, total 24 mmol/L 20-29 [Moles/volume] in Serum or Plasma (test code = 2027-9) Calcium [Mass/volume] in 9.4 mg/dL 8.7-10.3 Serum or Plasma (test code = 42036-6) Protein [Mass/volume] in 6.6 g/dL 6.0-8.5 Serum or Plasma (test code = 2885-2) Albumin [Mass/volume] in 4.4 g/dL 3.7-4.7 Serum or Plasma (test code = 1751-7) Globulin [Mass/volume] in 2.2 g/dL 1.5-4.5 Serum by calculation (test code = 14822-9) Albumin/Globulin [Mass Ratio] 2.0 1.2-2.2 in Serum or Plasma (test code = 1759-0) Bilirubin.total [Mass/volume] 0.3 mg/dL 0.0-1.2 in Serum or Plasma (test code = 1975-2) Alkaline phosphatase 85 IU/L 39-117 [Enzymatic activity/volume] in Serum or Plasma (test code = 6768-6) Aspartate aminotransferase 27 IU/L 0-40 [Enzymatic activity/volume] in Serum or Plasma (test code = 1920-8) Alanine aminotransferase 24 IU/L 0-32 [Enzymatic activity/volume] in Serum or Plasma (test code = 1742-6) [facility] panel - Blood by Automated [id number] 00:00:00 Test Item Value Reference Range Interpretation Comments Leukocytes [#/volume] in Blood 4.8 x10e3/uL 3.4-10.8 by Automated count (test code = 6690-2) Erythrocytes [#/volume] in 4.14 x10e6/uL 3.77-5.28 Blood by Automated count (test code = 789-8) Hemoglobin [Mass/volume] in 12.6 g/dL 11.1-15.9 Blood (test code = 718-7) Hematocrit [Volume Fraction] of 38.0 % 34.0-46.6 Blood by Automated count (test code = 4544-3) Erythrocyte mean corpuscular 92 fL 79-97 volume [Entitic volume] by Automated count (test code = 787-2) Erythrocyte mean corpuscular 30.4 pg 26.6-33.0 hemoglobin [Entitic mass] by Automated count (test code = 785-6) Erythrocyte mean corpuscular 33.2 g/dL 31.5-35.7 hemoglobin concentration [Mass/volume] by Automated count (test code = 786-4) Erythrocyte distribution width 12.2 % 11.7-15.4 [Ratio] by Automated count (test code = 788-0) Platelets [#/volume] in Blood 284 x10e3/uL 150-450 by Automated count (test code = 777-3) Nucleated erythrocytes/100 metal reclamation kettle tender leukocytes [Ratio] in Blood by Automated count (test code = 95165-5) [facility] - Serum or [id number] 00:00:00 Test Item Value Reference Range Interpretation Comments Cholesterol [Mass/volume] in Serum 215 mg/dL 100-199 H or Plasma (test code = 2093-3) Triglyceride [Mass/volume] in Serum 117 mg/dL 0-149 or Plasma (test code = 2571-8) Cholesterol in HDL [Mass/volume] in 74 mg/dL >39 Serum or Plasma (test code = 2085-9) Cholesterol in VLDL [Mass/volume] 20 mg/dL 5-40 in Serum or Plasma by calculation (test code = 77835-4) Cholesterol in LDL [Mass/volume] in 121 mg/dL 0-99 H Serum or Plasma by calculation (test code = 52605-6) Laboratory comment [Text] in Report metal reclamation kettle tender Narrative (test code = 28759-8) Cholesterol in LDL/Cholesterol in 1.6 ratio 0.0-3.2 HDL [Mass Ratio] in Serum or Plasma (test code = 17870-5) [facility]Hemoglobin.total in Blood 2021-01-20 00:00:00 Test Item Value Reference Range Interpretation Comments Hemoglobin A1c/Hemoglobin.total in 5.3 % 4.8-5.6 Blood (test code = 4548-4) [facility] (T4) free [Mass/volume] in Serum or [id number] 00:00:00 Test Item Value Reference Range Interpretation Comments Thyroxine (T4) free [Mass/volume] 1.34 NG/dL 0.82-1.77 in Serum or Plasma (test code = 3024-7) [facility] [Units/volume] in Serum or Plasma by Detection limit <= 0.005 mIU/[id number] 00:00:00 Test Item Value Reference Range Interpretation Comments Thyrotropin [Units/volume] in 0.926 uIU/mL 0.450-4.500 Serum or Plasma by Detection limit <= 0.005 mIU/L (test code = 70953-0) [facility]25-Hydroxyvitamin D3+25-Hydroxyvitamin D2 [Mass/volume] in Serum or [id number] 00:00:00 Test Item Value Reference Range Interpretation Comments 25-Hydroxyvitamin 47.4 NG/mL 30.0-100.0 D3+25-Hydroxyvitamin D2 [Mass/volume] in Serum or Plasma (test code = 90048-1) [facility] [Mass/volume] in Serum or Plasma 2021-01-20 00:00:00 Test Item Value Reference Range Interpretation Comments Urate [Mass/volume] in Serum or 3.1 mg/dL 3.1-7.9 Plasma (test code = 3084-1) [facility] Ab [Presence] in [id number] 00:00:00 Test Item Value Reference Range Interpretation Comments Nuclear Ab [Presence] in Serum (test negative negative code = 8061-4) [facility]iodothyron[facility] (T3) [Mass/volume] in Serum or [id number] 00:00:00 Test Item Value Reference Range Interpretation Comments Triiodothyronine (T3) [Mass/volume] 117 NG/dL 71-180 in Serum or Plasma (test code = 3053-6) [facility]wall[facility]rythrocyte sedimentation [id number] 00:00:00 Test Item Value Reference Range Interpretation Comments Erythrocyte sedimentation rate by 13 mm/HR 0-40 Westergren method (test code = 4537-7) [facility] reactive protein [Mass/volume] in Serum or [id number] 00:00:00 Test Item Value Reference Range Interpretation Comments C reactive protein [Mass/volume] in <1 0-10 Serum or Plasma (test code = 1988-5) [facility] 2000 panel - Serum or [id number] 00:00:00 Test Item Value Reference Range Interpretation Comments Glucose [Mass/volume] in 102 mg/dL 65-99 H Serum or Plasma (test code = 2345-7) Urea nitrogen [Mass/volume] 11 mg/dL 8-27 in Serum or Plasma (test code = 3094-0) Creatinine [Mass/volume] in 0.55 mg/dL 0.57-1.00 L Serum or Plasma (test code = 2160-0) Glomerular filtration 95 mL/min/1.73 >59 rate/1.73 sq M.predicted among non-blacks [Volume Rate/Area] in Serum, Plasma or Blood by Creatinine-based formula (CKD-EPI) (test code = 79538-7) Glomerular filtration 109 mL/min/1.73 >59 rate/1.73 sq M.predicted among blacks [Volume Rate/Area] in Serum, Plasma or Blood by Creatinine-based formula (CKD-EPI) (test code = 37165-9) Urea nitrogen/Creatinine 20 12-28 [Mass Ratio] in Serum or Plasma (test code = 3097-3) Sodium [Moles/volume] in 143 mmol/L 134-144 Serum or Plasma (test code = 2951-2) Potassium [Moles/volume] in 4.6 mmol/L 3.5-5.2 Serum or Plasma (test code = 2823-3) Chloride [Moles/volume] in 104 mmol/L 96-106 Serum or Plasma (test code = 2075-0) Carbon dioxide, total 24 mmol/L 20-29 [Moles/volume] in Serum or Plasma (test code = 2027-9) Calcium [Mass/volume] in 9.4 mg/dL 8.7-10.3 Serum or Plasma (test code = 72625-9) Protein [Mass/volume] in 6.6 g/dL 6.0-8.5 Serum or Plasma (test code = 2885-2) Albumin [Mass/volume] in 4.4 g/dL 3.7-4.7 Serum or Plasma (test code = 1751-7) Globulin [Mass/volume] in 2.2 g/dL 1.5-4.5 Serum by calculation (test code = 88374-3) Albumin/Globulin [Mass Ratio] 2.0 1.2-2.2 in Serum or Plasma (test code = 1759-0) Bilirubin.total [Mass/volume] 0.3 mg/dL 0.0-1.2 in Serum or Plasma (test code = 1975-2) Alkaline phosphatase 85 IU/L 39-117 [Enzymatic activity/volume] in Serum or Plasma (test code = 6768-6) Aspartate aminotransferase 27 IU/L 0-40 [Enzymatic activity/volume] in Serum or Plasma (test code = 1920-8) Alanine aminotransferase 24 IU/L 0-32 [Enzymatic activity/volume] in Serum or Plasma (test code = 1742-6) [facility] panel - Blood by Automated [id number] 00:00:00 Test Item Value Reference Range Interpretation Comments Leukocytes [#/volume] in Blood 4.8 x10e3/uL 3.4-10.8 by Automated count (test code = 6690-2) Erythrocytes [#/volume] in 4.14 x10e6/uL 3.77-5.28 Blood by Automated count (test code = 789-8) Hemoglobin [Mass/volume] in 12.6 g/dL 11.1-15.9 Blood (test code = 718-7) Hematocrit [Volume Fraction] of 38.0 % 34.0-46.6 Blood by Automated count (test code = 4544-3) Erythrocyte mean corpuscular 92 fL 79-97 volume [Entitic volume] by Automated count (test code = 787-2) Erythrocyte mean corpuscular 30.4 pg 26.6-33.0 hemoglobin [Entitic mass] by Automated count (test code = 785-6) Erythrocyte mean corpuscular 33.2 g/dL 31.5-35.7 hemoglobin concentration [Mass/volume] by Automated count (test code = 786-4) Erythrocyte distribution width 12.2 % 11.7-15.4 [Ratio] by Automated count (test code = 788-0) Platelets [#/volume] in Blood 284 x10e3/uL 150-450 by Automated count (test code = 777-3) Nucleated erythrocytes/100 metal reclamation kettle tender leukocytes [Ratio] in Blood by Automated count (test code = 95414-4) [facility] - Serum or [id number] 00:00:00 Test Item Value Reference Range Interpretation Comments Cholesterol [Mass/volume] in Serum 215 mg/dL 100-199 H or Plasma (test code = 2093-3) Triglyceride [Mass/volume] in Serum 117 mg/dL 0-149 or Plasma (test code = 2571-8) Cholesterol in HDL [Mass/volume] in 74 mg/dL >39 Serum or Plasma (test code = 2085-9) Cholesterol in VLDL [Mass/volume] 20 mg/dL 5-40 in Serum or Plasma by calculation (test code = 98073-7) Cholesterol in LDL [Mass/volume] in 121 mg/dL 0-99 H Serum or Plasma by calculation (test code = 02243-5) Laboratory comment [Text] in Report metal reclamation kettle tender Narrative (test code = 76252-1) Cholesterol in LDL/Cholesterol in 1.6 ratio 0.0-3.2 HDL [Mass Ratio] in Serum or Plasma (test code = 36421-9) [facility] A1c/Hemoglobin.total in Blood 2021-01-20 00:00:00 Test Item Value Reference Range Interpretation Comments Hemoglobin A1c/Hemoglobin.total in 5.3 % 4.8-5.6 Blood (test code = 4548-4) [facility]yroxine (T4) free [Mass/volume] in Serum or [id number] 00:00:00 Test Item Value Reference Range Interpretation Comments Thyroxine (T4) free [Mass/volume] 1.34 NG/dL 0.82-1.77 in Serum or Plasma (test code = 3024-7) [facility]Thyrotropin [Units/volume] in Serum or Plasma by Detection limit <= 0.005 mIU/[id number] 00:00:00 Test Item Value Reference Range Interpretation Comments Thyrotropin [Units/volume] in 0.926 uIU/mL 0.450-4.500 Serum or Plasma by Detection limit <= 0.005 mIU/L (test code = 01170-0) [facility]25-Hydroxyvitamin D3+25-Hydroxyvitamin D2 [Mass/volume] in Serum or [id number] 00:00:00 Test Item Value Reference Range Interpretation Comments 25-Hydroxyvitamin 47.4 NG/mL 30.0-100.0 D3+25-Hydroxyvitamin D2 [Mass/volume] in Serum or Plasma (test code = 56444-1) [facility]wall[facility]rate [Mass/volume] in Serum or Plasma 2021-01-20 00:00:00 Test Item Value Reference Range Interpretation Comments Urate [Mass/volume] in Serum or 3.1 mg/dL 3.1-7.9 Plasma (test code = 3084-1) [facility]wallNuclear Ab [Presence] in [id number] 00:00:00 Test Item Value Reference Range Interpretation Comments Nuclear Ab [Presence] in Serum (test negative negative code = 8061-4) [facility]wallTriiodothyronine (T3) [Mass/volume] in Serum or [id number] 00:00:00 Test Item Value Reference Range Interpretation Comments Triiodothyronine (T3) [Mass/volume] 117 NG/dL 71-180 in Serum or Plasma (test code = 3053-6) [facility]wallErythrocyte sedimentation [id number] 00:00:00 Test Item Value Reference Range Interpretation Comments Erythrocyte sedimentation rate by 13 mm/HR 0-40 Westergren method (test code = 4537-7) [facility]wall[facility] reactive protein [Mass/volume] in Serum or [id number] 00:00:00 Test Item Value Reference Range Interpretation Comments C reactive protein [Mass/volume] in <1 0-10 Serum or Plasma (test code = 1988-5) [facility]wall[facility] 2000 panel - Serum or [id number] 00:00:00 Test Item Value Reference Range Interpretation Comments Glucose [Mass/volume] in 102 mg/dL 65-99 H Serum or Plasma (test code = 2345-7) Urea nitrogen [Mass/volume] 11 mg/dL 8-27 in Serum or Plasma (test code = 3094-0) Creatinine [Mass/volume] in 0.55 mg/dL 0.57-1.00 L Serum or Plasma (test code = 2160-0) Glomerular filtration 95 mL/min/1.73 >59 rate/1.73 sq M.predicted among non-blacks [Volume Rate/Area] in Serum, Plasma or Blood by Creatinine-based formula (CKD-EPI) (test code = 97924-8) Glomerular filtration 109 mL/min/1.73 >59 rate/1.73 sq M.predicted among blacks [Volume Rate/Area] in Serum, Plasma or Blood by Creatinine-based formula (CKD-EPI) (test code = 94643-2) Urea nitrogen/Creatinine 20 12-28 [Mass Ratio] in Serum or Plasma (test code = 3097-3) Sodium [Moles/volume] in 143 mmol/L 134-144 Serum or Plasma (test code = 2951-2) Potassium [Moles/volume] in 4.6 mmol/L 3.5-5.2 Serum or Plasma (test code = 2823-3) Chloride [Moles/volume] in 104 mmol/L 96-106 Serum or Plasma (test code = 2074-0) Carbon dioxide, total 24 mmol/L 20-29 [Moles/volume] in Serum or Plasma (test code = 2027-) Calcium [Mass/volume] in 9.4 mg/dL 8.7-10.3 Serum or Plasma (test code = 77486-2) Protein [Mass/volume] in 6.6 g/dL 6.0-8.5 Serum or Plasma (test code = 2885-2) Albumin [Mass/volume] in 4.4 g/dL 3.7-4.7 Serum or Plasma (test code = 1751-7) Globulin [Mass/volume] in 2.2 g/dL 1.5-4.5 Serum by calculation (test code = 28879-2) Albumin/Globulin [Mass Ratio] 2.0 1.2-2.2 in Serum or Plasma (test code = 1759-0) Bilirubin.total [Mass/volume] 0.3 mg/dL 0.0-1.2 in Serum or Plasma (test code = 1974-) Alkaline phosphatase 85 IU/L 39-117 [Enzymatic activity/volume] in Serum or Plasma (test code = 6768-6) Aspartate aminotransferase 27 IU/L 0-40 [Enzymatic activity/volume] in Serum or Plasma (test code = 1920-8) Alanine aminotransferase 24 IU/L 0-32 [Enzymatic activity/volume] in Serum or Plasma (test code = 1742-6) [facility] panel - Blood by Automated [id number] 00:00:00 Test Item Value Reference Range Interpretation Comments Leukocytes [#/volume] in Blood 4.8 x10e3/uL 3.4-10.8 by Automated count (test code = 6690-2) Erythrocytes [#/volume] in 4.14 x10e6/uL 3.77-5.28 Blood by Automated count (test code = 789-8) Hemoglobin [Mass/volume] in 12.6 g/dL 11.1-15.9 Blood (test code = 718-7) Hematocrit [Volume Fraction] of 38.0 % 34.0-46.6 Blood by Automated count (test code = 4544-3) Erythrocyte mean corpuscular 92 fL 79-97 volume [Entitic volume] by Automated count (test code = 787-2) Erythrocyte mean corpuscular 30.4 pg 26.6-33.0 hemoglobin [Entitic mass] by Automated count (test code = 785-6) Erythrocyte mean corpuscular 33.2 g/dL 31.5-35.7 hemoglobin concentration [Mass/volume] by Automated count (test code = 786-4) Erythrocyte distribution width 12.2 % 11.7-15.4 [Ratio] by Automated count (test code = 788-0) Platelets [#/volume] in Blood 284 x10e3/uL 150-450 by Automated count (test code = 777-3) Nucleated erythrocytes/100 metal reclamation kettle tender leukocytes [Ratio] in Blood by Automated count (test code = 85537-4) [facility] or [id number] 00:00:00 Test Item Value Reference Range Interpretation Comments Cholesterol [Mass/volume] in Serum 215 mg/dL 100-199 H or Plasma (test code = 2093-3) Triglyceride [Mass/volume] in Serum 117 mg/dL 0-149 or Plasma (test code = 2571-8) Cholesterol in HDL [Mass/volume] in 74 mg/dL >39 Serum or Plasma (test code = 2085-9) Cholesterol in VLDL [Mass/volume] 20 mg/dL 5-40 in Serum or Plasma by calculation (test code = 38089-9) Cholesterol in LDL [Mass/volume] in 121 mg/dL 0-99 H Serum or Plasma by calculation (test code = 48652-9) Laboratory comment [Text] in Report metal reclamation kettle tender Narrative (test code = 82114-5) Cholesterol in LDL/Cholesterol in 1.6 ratio 0.0-3.2 HDL [Mass Ratio] in Serum or Plasma (test code = 45869-3) [facility]Hemoglobin.total in Blood 2021-01-20 00:00:00 Test Item Value Reference Range Interpretation Comments Hemoglobin A1c/Hemoglobin.total in 5.3 % 4.8-5.6 Blood (test code = 4548-4) [facility] free [Mass/volume] in Serum or [id number] 00:00:00 Test Item Value Reference Range Interpretation Comments Thyroxine (T4) free [Mass/volume] 1.34 NG/dL 0.82-1.77 in Serum or Plasma (test code = 3024-7) [facility] [Units/volume] in Serum or Plasma by Detection limit <= 0.005 mIU/[id number] 00:00:00 Test Item Value Reference Range Interpretation Comments Thyrotropin [Units/volume] in 0.926 uIU/mL 0.450-4.500 Serum or Plasma by Detection limit <= 0.005 mIU/L (test code = 47402-3) [facility]25-Hydroxyvitamin D3+25-Hydroxyvitamin D2 [Mass/volume] in Serum or [id number] 00:00:00 Test Item Value Reference Range Interpretation Comments 25-Hydroxyvitamin 47.4 NG/mL 30.0-100.0 D3+25-Hydroxyvitamin D2 [Mass/volume] in Serum or Plasma (test code = 31022-7) [facility] [Mass/volume] in Serum or Plasma 2021-01-20 00:00:00 Test Item Value Reference Range Interpretation Comments Urate [Mass/volume] in Serum or 3.1 mg/dL 3.1-7.9 Plasma (test code = 3084-1) [facility] [Presence] in [id number] 00:00:00 Test Item Value Reference Range Interpretation Comments Nuclear Ab [Presence] in Serum (test negative negative code = 8061-4) [facility]iodothyron[facility] (T3) [Mass/volume] in Serum or [id number] 00:00:00 Test Item Value Reference Range Interpretation Comments Triiodothyronine (T3) [Mass/volume] 117 NG/dL 71-180 in Serum or Plasma (test code = 3053-6) [facility]ryth[facility] sedimentation [id number] 00:00:00 Test Item Value Reference Range Interpretation Comments Erythrocyte sedimentation rate by 13 mm/HR 0-40 Westergren method (test code = 4537-7) [facility] reactive protein [Mass/volume] in Serum or [id number] 00:00:00 Test Item Value Reference Range Interpretation Comments C reactive protein [Mass/volume] in <1 0-10 Serum or Plasma (test code = 1988-5) [facility] History and Physical Notes Date/Time Note Provider Source 2023-05-15 11:16:26-00:00 Formatting of this note migh t be different from the original. [facility] H&P Update H&P was reviewed and the pat ient was examined and there was no change in the patient's condition. Notes Date/Time Note Provider Source 2023-05-14 13:39:27-00:00 Formatting of this note migh t be different from the original. [facility] Arrival time given for 3 at 1030. No reported change in health condition since pre-op screening call. No significant medical visits noted in chart review notes or reported by patient. Electronically signed by Jennifer Becerra RN a t 05/14/2023 1:39 PM CDT 2023-05-08 11:30:34-00:00 Formatting of this note migh t be different from the original. [facility] Images from the original note were not included. Your procedure is at [facility] on 05/15/23. The address is [address] [place] [address], [id number]. [facility] nursing staff will call you the workday before your procedure to l et you know what time to arr sis.On the day of your procedure, please go inside that door and check in at the desk. Please note: You may not tra willy home alone and that includes in a taxi or by bus. We must speak to your Responsible Adult (who will be picking you up) the morning of your procedure, before the start of your procedure. This person must be an adult ove r the age of 18 years of age. Do not eat any solid food af ter midnight the night before surgery. You may have sips of clear liquids such as water, gatorade, and sprite up until two hours before your scheduled procedure. You may take your medications with a sip of wate r as directed by physician. Anticoagulants will be per p hysician guidance. Medication Note(s)/Instructions:n/a Pending screening, we may te st for COVID. If a patient tests positive, their cases are cancelled and/or rescheduled. COVID SCREENING NOTE: Denies COVID symptoms, no testing required. Additional requests, questions, concerns:n/a Patient verbalized understan ding of pre-op instructions and voiced no further questions at this time. Electronically signed by Suze Atkinson RN at 11:31 AM CDT
[2023-06-14 17:12] LABS: Absolute Lymphocytes (CBC) 0.6 K/uL (0.7-4.9); Hematocrit 34.8 % (36.0-45.0); Lymphocytes % 17.8 % (15.3-44.8); MPV 7.1 fL (7.6-11.3); Platelets 206 thou/uL (152-406); RBC Red Blood Cell Count 3.87 M/uL (3.86-4.86)
[2023-06-14 17:15] LABS: Protime INR 1.1
--- NOTE | 2023-06-14 17:15 | RAD REPORT ---
EXAM DESCRIPTION: RAD - Chest Single View - 06/14/2023 5:08 pm CLINICAL HISTORY: COUGH Chest pain. COMPARISON: CHEST PA AND LAT 2 VIEW dated 03/17/2009; CHEST PA AND LAT 2 VIEW dated 04/22/2006 FINDINGS: Portable technique limits examination quality. The lungs are emphysematous but grossly clear. The heart is normal in size. No displaced fractures. IMPRESSION: Mild COPD.
[2023-06-14] MEDS ORDERED: ACETAMINOPHEN 500 MG TAB ONE (17:20)
[2023-06-14] MEDS ORDERED: ASPIRIN 81 MG CHEWABLE TABLET ONE (17:20)
[2023-06-14 17:32] LABS: Albumin 3.8 g/dL (3.4-5.0); Bilirubin Direct 0.2 mg/dL (0-0.2); Bilirubin Indirect, Calculated 0.2 mg/dL (0.2-0.8); Bilirubin Total 0.4 mg/dL (0.2-1.0); Magnesium 2.4 mg/dL (1.6-2.4); Potassium 4.2 mEq/L (3.5-5.1); Protein, Total 6.8 g/dL (6.4-8.2)
--- NOTE | 2023-06-14 18:19 | RAD REPORT ---
EXAM DESCRIPTION: CT - Chest For Pe Angio - 06/14/2023 6:07 pm CLINICAL HISTORY: Chest pain. PRODUCTIVE COUGH COMPARISON: No comparisons TECHNIQUE: CT angiogram of the pulmonary arteries was performed with MIP. All CT scans are performed using dose optimization technique as appropriate and may include automated exposure control or mA/KV adjustment according to patient size. FINDINGS: No evidence of pulmonary thromboembolism. No acute aortic finding demonstrated. Significant stenosis of the origin of the left subclavian arter y noted. 6 mm semi-solid nodule posterolateral left upper lobe. The lungs are otherwise clear. No focal infilt rate. No significant pericardial or pleural fluid. No concerning bony finding. IMPRESSION: No evidence of pulmonary thromboembolism. No acute lung findings. Stenosis is noted origin left subclavian artery.
--- NOTE | 2023-06-14 18:28 | ER ---
Nurse's Notes [facility] Name: Lisa Carlos Age: 78 yrs Sex: Female : 1945 Arrival Date: 06/14/2023 Time: 16:18 Bed 4 Private MD: Diagnosis: SARS-associated coronavirus as the cause of diseases classified elsewhere Presentation: 06/14 16:45 Chief complaint: Patient states: tested positive for covid today, has been sick for a ko1 month, been on antibiotics but is not getting better. Coronavirus screen: Client reports previous positive COVID test result. Date of collection: June 14, 2023. Ebola Screen: No symptoms or risks identified at this time. Initial Sepsis Screen: Does the patient meet any 2 criteria? No. Patient's initial sepsis screen is negative. Does the patient have a suspected source of infection? No. Patient's initial sepsis screen is negative. Risk Assessment: Do you want to hurt yourself or someone else? Patient reports no desire to harm self or others. Onset of symptoms is unknown. 16:45 Method Of Arrival: Ambulatory ko1 16:45 Acuity: EDWARDO 3 ko1 Triage Assessment: 16:45 General: Appears in no apparent distress. comfortable, Behavior is calm, cooperative, ko1 appropriate for age. Pain: Denies pain. Historical: - Allergies: 17:26 Aspirin; ko1 - Immunization history:: Adult Immunizations up to date. - Social history:: Smoking status: Patient denies any tobacco usage or history of. Screenin:45 [facility] ED Fall Risk Assessment (Adult) History of falling in the last 3 months, ko1 including since admission No falls in past 3 months (0 pts) Confusion or Disorientation No (0 pts) Intoxicated or Sedated No (0 pts) Impaired Gait No (0 pts) Mobility Assist Device Used No (0 pt) Altered Elimination No (0 pt) Score/Fall Risk Level 0 - 2 = Low Risk Oriented to surroundings, Maintained a safe environment, Educated pt \T\ family on fall prevention, incl call for assistance when getting out of bed, Assessed \T\ reinforced patient's understanding of fall precautions, Provided non-skid footwear, Hourly rounding (assess needs \T\ fall precautionary measures) done, Used ambulatory aids as needed (educated on \T\ assisted with), Used gait belt as appropriate. Abuse screen: Denies threats or abuse. Denies injuries from another. Nutritional screening: No deficits noted. Tuberculosis screening: No symptoms or risk factors identified. Assessment: 16:45 Neuro: No deficits noted. Cardiovascular: No deficits noted. Respiratory: Reports cough ko1 that is productive. GI: No deficits noted. : No deficits noted. EENT: No deficits noted. Derm: No deficits noted. Musculoskeletal: No deficits noted. Vital Signs: 16:45 BP 109 / 73; Pulse 71; Resp 18; Temp 98.8; Pulse Ox 99% ; Weight 58.97 kg; Height 5 ft. ko1 3 in. ; 18:20 BP 108 / 66; Pulse 68; Resp 18; Pulse Ox 99% ; ko1 16:45 Body Mass Index 23.03 (58.97 kg, 160.02 cm) ko1 ED Course: 16:22 Patient arrived in ED. snw 16:22 Rajeev Mcnamara MD is Attending Physician. snw 16:22 Gladys Huntley FNP-C is PHCP. snw 16:39 Ami Ramirez, KEARA is Primary Nurse. ko1 16:45 Arm band placed on right wrist. Patient placed in an exam room, on a stretcher, on ko1 environmental monitoring technician, on pulse oximetry, Patient notified of wait time. 16:45 Patient has correct armband on for positive identification. Placed in gown. Bed in low ko1 position. Call light in reach. Side rails up X2. Client placed on continuous cardiac and pulse oximetry monitoring. NIBP monitoring applied. environmental monitoring technician on. Door closed. Noise minimized. Lights dimmed. Warm blanket given. 17:00 Inserted saline lock: 20 gauge in right antecubital area, using aseptic technique. ko1 Blood collected. 17:06 Blood Culture Adult (2) Sent. ko1 17:06 Lactate w/ 2H reflex if indic. Sent. ko1 17:06 Basic Metabolic Panel Sent. ko1 17:06 CBC with Diff Sent. ko1 17:06 D-Dimer Sent. ko1 17:06 LFT's Sent. ko1 17:06 Magnesium Sent. ko1 17:06 NT PRO-BNP Sent. ko1 17:06 PT-INR Sent. ko1 17:06 Troponin HS Sent. ko1 17:10 XRAY Chest (1 view) In Process Unspecified. EDMS 17:26 Triage completed. ko1 18:08 CT Chest For PE Angio In Process Unspecified. EDMS 18:48 No provider procedures requiring assistance completed. IV discontinued, intact, ko1 bleeding controlled, No redness/swelling at site. Pressure dressing applied. 18:48 Provided Education on: NA. ko1 Administered Medications: 17:12 Drug: Acetaminophen PO 1000 mg Route: PO; ko1 17:30 Not Given (Patient Refused): Aspirin PO Chewable Tablet 324 mg PO once; 81 mg tablets x ko1 4 Medication: 18:48 VIS not applicable for this client. ko1 Outcome: 18:28 Discharge ordered by . juaquin 18:48 Discharged to home ambulatory. ko1 18:48 Condition: good 18:48 Discharge instructions given to patient, Instructed on discharge instructions, follow up and referral plans. medication usage, Demonstrated understanding of instructions, follow-up care, medications, Prescriptions given X 4. 18:49 Patient left the ED. ko1 Signatures: Dispatcher [employer] EDGladys Krueger, RIBBON BLOCKMAKER-C RIBBON BLOCKMAKER-Csnw Ami Ramirez, RN RN ko1 Corrections: (The following items were deleted from the chart) 17:27 16:45 BP 109 / 73; Pulse 71bpm; Resp 18bpm; Pulse Ox 99%; Temp 98.8F; ko1 ko1
--- NOTE | 2023-06-14 18:28 | EDPHYS ---
Physician Documentation [facility] Name: Lisa Carlos Age: 78 yrs Sex: Female : 1945 Arrival Date: 06/14/2023 Time: 16:18 Bed 4 Private MD: ED Physician Rajeev Mcnamara HPI: 06/14 16:50 This 78 yrs old Female presents to ER via Unassigned with complaints of cough, fatigue, snw CoVid +. 16:50 The patient or guardian reports cough, with productive sputum, Rust, flu symptoms, snw myalgias, no appetite, fatigue. Onset: The symptoms/episode began/occurred Pt has been tx with 2 antibiotics (Zmax and Levaquin), steroids, inhalers, and supplements since 05/22/23. Pt has not ever gotten all the way better. Tested + for Covid today ( + x 1 wk). Now cough is productive of rust colored sputum. PCP unable to see pt until Aug 14. Associated signs and symptoms: Pertinent positives: rhinorrhea, sore throat, productive cough. The patient has not experienced similar symptoms in the past. as noted. Historical: - Allergies: 17:26 Aspirin; ko1 - Immunization history:: Adult Immunizations up to date. - Social history:: Smoking status: Patient denies any tobacco usage or history of. ROS: 16:50 Eyes: Negative for injury, pain, redness, and discharge, ENT: Negative for injury, snw pain, and discharge, Neck: Negative for injury, pain, and swelling, Cardiovascular: Negative for chest pain, palpitations, and edema. 16:50 Abdomen/GI: Negative for abdominal pain, nausea, vomiting, diarrhea, and constipation, Back: Negative for injury and pain, : Negative for injury, bleeding, discharge, and swelling, MS/Extremity: Negative for injury and deformity, Skin: Negative for injury, rash, and discoloration, Neuro: Negative for headache, weakness, numbness, tingling, and seizure, Psych: Negative for depression, anxiety, suicide ideation, homicidal ideation, and hallucinations. 16:50 Constitutional: Positive for body aches, malaise. 16:50 Respiratory: Positive for cough, with rust-colored sputum. Exam: 16:46 Head/Face: Normocephalic, atraumatic. Eyes: Pupils equal round and reactive to light, snw extra-ocular motions intact. Lids and lashes normal. Conjunctiva and sclera are non-icteric and not injected. Cornea within normal limits. Periorbital areas with no swelling, redness, or edema. ENT: Nares patent. No nasal discharge, no septal abnormalities noted. Tympanic membranes are normal and external auditory canals are clear. Oropharynx with no redness, swelling, or masses, exudates, or evidence of obstruction, uvula midline. Mucous membranes moist. Neck: Trachea midline, no thyromegaly or masses palpated, and no cervical lymphadenopathy. Supple, full range of motion without nuchal rigidity, or vertebral point tenderness. No Meningismus. Chest/axilla: Normal chest wall appearance and motion. Nontender with no deformity. No lesions are appreciated. Cardiovascular: Regular rate and rhythm with a normal S1 and S2. No gallops, murmurs, or rubs. Normal PMI, no JVD. No pulse deficits. Abdomen/GI: Soft, non-tender, with normal bowel sounds. No distension or tympany. No guarding or rebound. No evidence of tenderness throughout. Back: No spinal tenderness. No costovertebral tenderness. Full range of motion. Skin: Warm, dry with normal turgor. Normal color with no rashes, no lesions, and no evidence of cellulitis. MS/ Extremity: Pulses equal, no cyanosis. Neurovascular intact. Full, normal range of motion. Neuro: Awake and alert, GCS 15, oriented to person, place, time, and situation. Cranial nerves II-XII grossly intact. Motor strength 5/5 in all extremities. Sensory grossly intact. Cerebellar exam normal. Normal gait. Psych: Awake, alert, with orientation to person, place and time. Behavior, mood, and affect are within normal limits. 16:46 Constitutional: The patient appears alert, awake. 16:46 Respiratory: the patient does not display signs of respiratory distress, Respirations: shallow respirations, that is mild, that is moderate, Breath sounds: decreased breath sounds, that are moderate, are located in both bases. Vital Signs: 16:45 BP 109 / 73; Pulse 71; Resp 18; Temp 98.8; Pulse Ox 99% ; Weight 58.97 kg; Height 5 ft. ko1 3 in. ; 18:20 BP 108 / 66; Pulse 68; Resp 18; Pulse Ox 99% ; ko1 16:45 Body Mass Index 23.03 (58.97 kg, 160.02 cm) ko1 MDM: 16:22 Patient medically screened. snw 16:54 Differential diagnosis: bronchitis, flu, PE. Data reviewed: vital signs, nurses notes, snw lab test result(s), radiologic studies. Test considered but Not performed: CT: will await creatinine and DD as SpO2 is currently 100%. Counseling: I had a detailed discussion with the patient and/or guardian regarding the historical points, exam findings, and any diagnostic results supporting the discharge/admit diagnosis, lab results, radiology results. 06/14 16:41 Order name: Basic Metabolic Panel; Complete Time: 17:38 snw 06/14 16:41 Order name: CBC with Diff; Complete Time: 17:19 snw 06/14 16:41 Order name: D-Dimer; Complete Time: 17:19 snw 06/14 16:41 Order name: LFT's; Complete Time: 17:38 snw 06/14 16:41 Order name: Magnesium; Complete Time: 17:38 snw 06/14 16:41 Order name: NT PRO-BNP; Complete Time: 17:38 snw 06/14 16:41 Order name: PT-INR; Complete Time: 17:19 snw 06/14 16:41 Order name: Troponin HS; Complete Time: 17:38 snw 06/14 16:41 Order name: Blood Culture Adult (2) snw 06/14 16:41 Order name: Lactate w/ 2H reflex if indic.; Complete Time: 17:27 snw 06/14 16:41 Order name: XRAY Chest (1 view); Complete Time: 17:19 snw 06/14 17:20 Order name: CT Chest For PE Angio; Complete Time: 18:26 snw 06/14 16:41 Order name: EKG; Complete Time: 16:42 snw 06/14 16:41 Order name: Cardiac monitoring; Complete Time: 17:06 snw 06/14 16:41 Order name: EKG - Nurse/Tech; Complete Time: 17:06 snw 06/14 16:41 Order name: IV Saline Lock; Complete Time: 17:06 snw 06/14 16:41 Order name: Labs collected and sent; Complete Time: 17:06 snw 06/14 16:41 Order name: O2 Per Protocol; Complete Time: 17:06 snw 06/14 16:41 Order name: O2 Sat Monitoring; Complete Time: 17:06 snw EC:52 Rhythm is irregular. QRS [place] is Normal. [place] interval is normal. QRS interval is normal. snw QT interval is normal. No Q waves. Clinical impression: Normal ECG and Sinus arrythmia. Administered Medications: 17:12 Drug: Acetaminophen PO 1000 mg Route: PO; ko1 17:30 Not Given (Patient Refused): Aspirin PO Chewable Tablet 324 mg PO once; 81 mg tablets x ko1 4 Disposition: 20:29 Co-signature as Attending Physician, Rajeev Mcnamara MD I reviewed the patient's care rn provided by the Advanced Practice Provider and agree with the diagnosis and treatment plan. Disposition Summary: 06/14/23 18:28 Discharge Ordered Location: Home snw Condition: Stable snw Diagnosis - SARS-associated coronavirus as the cause of diseases classified elsewhere snw Followup: snw - With: Emergency Department - When: As needed - Reason: Worsening of condition Followup: snw - With: Private Physician - When: As needed - Reason: Worsening of condition Discharge Instructions: - Discharge Summary Sheet snw - Cough, Adult snw - COVID-19 snw - 10 Things You Can Do to Manage Your COVID-19 Symptoms at Home - CDC (04/28/2021) snw - Viral Illness, Adult snw Forms: - Medication Reconciliation Form snw - Thank You Letter snw - Antibiotic Education snw - Prescription Opioid Use snw - Patient Portal Instructions snw - Leadership Thank You Letter snw Prescriptions: - Zyrtec 10 mg Oral Tablet - take 1 tablet by ORAL route once daily As needed; 20 tablet; Refills: 0, snw Product Selection Permitted - Prednisone 20 mg Oral Tablet - take 2 tablets by ORAL route once daily for 5 days; 10 tablet; Refills: 0, snw Product Selection Permitted - Pepcid 20 mg Oral Tablet - take 1 tablet by ORAL route once daily; 20 tablet; Refills: 0, Product snw Selection Permitted - Zithromax 500 mg Oral Tablet - take 1 tablet by ORAL route once daily for 5 days; 5 tablet; Refills: 0, snw Product Selection Permitted Signatures: Dispatcher [employer] Rabbit Gladys Fortune, PUBLIC HEALTH NUTRITIONIST-C PUBLIC HEALTH NUTRITIONIST-Csnw Rajeev Mcnamara MD MD rn Ami Ramirez RN RN ko1
[2023-06-14 19:11] VITALS: TEMP 98.8; O2SAT 99
[2023-06-14 19:22] VITALS: BP 108/66
--- NOTE | 2023-06-15 14:38 | EKG ---
Test Date: 2023-06-14 Test Time: 16:51:57 Sugar Controller: HB MEASUREMENT RESULTS: Intervals: Rate: 78 LA: 174 QRSD: 66 QT: 380 QTc: 433 [place]: P: 79 LA: 174 QRS: 8 T: 66 INTERPRETIVE STATEMENTS: Normal sinus rhythm with sinus arrhythmia Normal ECG Compared to ECG 08/09/1998 15:05:00 Atrial premature complex(es) no longer present Electronically Signed On 06-15-23 14:36:19 CDT by Guillermo Joseph
== END 2023-06-14 18:49 | disposition home or self-care (01) ==
LOC: ER 16:18
DX: U07.1 COVID-19 (principal); Z88.6 Allergy status to analgesic agent
CPT/HCPCS: 93005; 87040 ×2; 85025; 80048; 36415; 83735; 85610; 85379; 80076; 83605; 84484; 83880; 71275; 71045; 99284; Q9967